=== PATIENT | female | born 1975 | race Caucasian/White ===

== ENCOUNTER 2022-03-22 04:39 | Emergency (ER) | payer SELFPAY ==
--- OUTSIDE RECORDS SUMMARY | 2022-03-22 04:42 | XMS REPORT | Continuity of Care Document ---
:1975 Author Organization [facility] t Address [address] [place] [address] [address]. [address] [place] [address] Care Team Providers Name Role Phone WALLY ESQUIVEL Attending Clinician Unavailable LORRIE GRIFFIN Attending Clinician Unavailable Problems This patient has no known problems. Allergies, Adverse Reactions, Alerts This patient has no known allergies or adverse reactions. Medications This patient has no known medications. Procedures This patient has no known procedures. Results Test Description Test Time Test Comments Results Result Comments Source BASIC METABOLIC PANEL 2019-07-18 18:13:00 Test Item Value Reference Range Interpretation Comme nts SODIUM (BEAKER) (test code 136 meq/L 135-148 = 381) POTASSIUM (BEAKER) (test 4.7 meq/L 3.6-5.5 code = 379) CHLORIDE (BEAKER) (test 108 meq/L 98-106 H code = 382) CO2 (BEAKER) (test code = 23 meq/L 20-29 355) BLOOD UREA NITROGEN 14 mg/dL 10-26 (BEAKER) (test code = 354) CREATININE (BEAKER) (test 0.82 mg/dL 0.50-1.20 code = 358) GLUCOSE RANDOM (BEAKER) 80 mg/dL 70-110 (test code = 652) CALCIUM (BEAKER) (test code 7.4 mg/dL 8.5-10.5 L = 697) EGFR (BEAKER) (test code = 75 mL/min/1.73 sq m ESTIMATED GFR IS NOT 1092) ACCURATE CRE ATININE CLEARANCE IN AK EDICTING GLOMERULAR FILT RATION RATE. ESTIMATED GFR IS NOT APPLICABLE FOR DIALYSIS PATIENTS. HCG, SERUM, [id number] 18:01:00 Test Item Value Reference Range Interpretation Comments TEST SERUM (BEAKER) (test Negative code = 584) CBC W/PLT COUNT & AUTO [id number] 17:53:00 Test Item Value Reference Range Interpretation Comments WHITE BLOOD CELL COUNT (BEAKER) 11.3 K/ L 4.0-10.0 H (test code = 775) RED BLOOD CELL COUNT (BEAKER) 4.38 M/ L 4.00-5.00 (test code = 761) HEMOGLOBIN (BEAKER) (test code = 13.7 GM/DL 12.0-15.5 410) HEMATOCRIT (BEAKER) (test code = 40.6 % 36.0-46.0 411) MEAN CORPUSCULAR VOLUME (BEAKER) 92.7 fL 82.0-99.0 (test code = 753) MEAN CORPUSCULAR HEMOGLOBIN 31.3 pg 27.0-33.0 (BEAKER) (test code = 751) MEAN CORPUSCULAR HEMOGLOBIN CONC 33.7 GM/DL 32.0-36.0 (BEAKER) (test code = 752) RED CELL DISTRIBUTION WIDTH 13.7 % 12.0-15.0 (BEAKER) (test code = 412) PLATELET COUNT (BEAKER) (test 303 K/CU MM 150-430 code = 756) MEAN PLATELET VOLUME (BEAKER) 9.6 fL 6.0-11.5 (test code = 754) NUCLEATED RED BLOOD CELLS 0 /100 WBC 0-0 (BEAKER) (test code = 413) NEUTROPHILS RELATIVE PERCENT 70 % (BEAKER) (test code = 429) LYMPHOCYTES RELATIVE PERCENT 20 % (BEAKER) (test code = 430) MONOCYTES RELATIVE PERCENT 7 % (BEAKER) (test code = 431) EOSINOPHILS RELATIVE PERCENT 3 % (BEAKER) (test code = 432) BASOPHILS RELATIVE PERCENT 0 % (BEAKER) (test code = 437) NEUTROPHILS ABSOLUTE COUNT 7.85 K/ L 1.80-8.00 (BEAKER) (test code = 670) LYMPHOCYTES ABSOLUTE COUNT 2.26 K/ L 1.48-4.50 (BEAKER) (test code = 414) MONOCYTES ABSOLUTE COUNT (BEAKER) 0.75 K/ L 0.00-1.30 (test code = 415) EOSINOPHILS ABSOLUTE COUNT 0.31 K/ L 0.00-0.50 (BEAKER) (test code = 416) BASOPHILS ABSOLUTE COUNT (BEAKER) 0.05 K/ L 0.00-0.20 (test code = 417) IMMATURE GRANULOCYTES-RELATIVE 0 % 0-0 PERCENT (BEAKER) (test code = 2801) RAD, CHEST, 1 VIEW, NON [id number] 17:41:00Reason for exam:->DIZZINESSIs the patient ?->UnknownShould this be performed at the bedside?->No FINAL REPORT Chest x-ray AP upright portable HISTORY: Dizziness COMPARISON: 04/09/2019 FINDINGS: Given the technique the cardiomediastinal silhouette is unremarkable. There is no pleural effusion or pneumothorax. Lung brizuela show no significant airspace disease, interstitial disease or lung nodules. Skeletal structures and upper abdomen are unremarkable. There is no significant change compared with the prior exam. IMPRESSION: No acute cardiopulmonary abnormality. Signed: Hudson Martinez Verified Date/Time: 07/18/2019 17:41:06 Reading Location: [facility] Diagnostic Imaging [facility] 1.310.12 TSH/FREE T4 IF [id number] 11:33:00 Test Item Value Reference Range Interpretation Comments THYROID STIMULATING HORMONE 0.79 uIU/mL 0.35-5.50 (BEAKER) (test code = 772) [id number] 11:16:00 Test Item Value Reference Range Interpretation Comments PHOSPHORUS (BEAKER) (test code = 3.4 mg/dL 2.5-4.5 604) [id number] 11:16:00 Test Item Value Reference Range Interpretation Comments MAGNESIUM (BEAKER) (test code = 1.6 mg/dL 1.5-3.0 627) COMPREHENSIVE METABOLIC [id number] 11:16:00 Test Item Value Reference Range Interpretation Comments TOTAL PROTEIN 5.8 gm/dL 6.0-8.5 L (BEAKER) (test code = 770) ALBUMIN (BEAKER) 3.6 g/dL 3.5-5.0 (test code = 1145) ALKALINE PHOSPHATASE 61 U/L 30-115 (BEAKER) (test code = 346) BILIRUBIN TOTAL 0.2 mg/dL 0.1-1.2 (BEAKER) (test code = 377) SODIUM (BEAKER) (test 139 meq/L 135-148 code = 381) POTASSIUM (BEAKER) 4.2 meq/L 3.6-5.5 (test code = 379) CHLORIDE (BEAKER) 108 meq/L 98-106 H (test code = 382) CO2 (BEAKER) (test 21 meq/L 20-29 code = 355) BLOOD UREA NITROGEN 12 mg/dL 10-26 (BEAKER) (test code = 354) CREATININE (BEAKER) 0.74 mg/dL 0.50-1.20 (test code = 358) GLUCOSE RANDOM 97 mg/dL 70-110 (BEAKER) (test code = 652) CALCIUM (BEAKER) 8.5 mg/dL 8.5-10.5 (test code = 697) AST (SGOT) (BEAKER) 20 U/L 5-40 (test code = 353) ALT (SGPT) (BEAKER) 17 U/L 5-50 (test code = 347) EGFR (BEAKER) (test 85 mL/min/1.73 ESTIMA APPLE GFR IS code = 1092) sq m NOT ACCURATE CREATININE CLEARANCE IN PREDICTING GLOMERULAR FILTRATION RATE . ESTIMATED GFR I S NOT APPLICABLE FOR DIALYSIS PATIEN TS. CBC W/PLT COUNT & AUTO [id number] 10:55:00 Test Item Value Reference Range Interpretation Comments WHITE BLOOD CELL COUNT (BEAKER) 10.3 K/ L 4.0-10.0 H (test code = 775) RED BLOOD CELL COUNT (BEAKER) 4.16 M/ L 4.00-5.00 (test code = 761) HEMOGLOBIN (BEAKER) (test code = 13.1 GM/DL 12.0-15.5 410) HEMATOCRIT (BEAKER) (test code = 39.5 % 36.0-46.0 411) MEAN CORPUSCULAR VOLUME (BEAKER) 95.0 fL 82.0-99.0 (test code = 753) MEAN CORPUSCULAR HEMOGLOBIN 31.5 pg 27.0-33.0 (BEAKER) (test code = 751) MEAN CORPUSCULAR HEMOGLOBIN CONC 33.2 GM/DL 32.0-36.0 (BEAKER) (test code = 752) RED CELL DISTRIBUTION WIDTH 13.5 % 12.0-15.0 (BEAKER) (test code = 412) PLATELET COUNT (BEAKER) (test 341 K/CU MM 150-430 code = 756) MEAN PLATELET VOLUME (BEAKER) 8.7 fL 6.0-11.5 (test code = 754) NUCLEATED RED BLOOD CELLS 0 /100 WBC 0-0 (BEAKER) (test code = 413) NEUTROPHILS RELATIVE PERCENT 73 % (BEAKER) (test code = 429) LYMPHOCYTES RELATIVE PERCENT 18 % (BEAKER) (test code = 430) MONOCYTES RELATIVE PERCENT 7 % (BEAKER) (test code = 431) EOSINOPHILS RELATIVE PERCENT 1 % (BEAKER) (test code = 432) BASOPHILS RELATIVE PERCENT 0 % (BEAKER) (test code = 437) NEUTROPHILS ABSOLUTE COUNT 7.57 K/ L 1.80-8.00 (BEAKER) (test code = 670) LYMPHOCYTES ABSOLUTE COUNT 1.89 K/ L 1.48-4.50 (BEAKER) (test code = 414) MONOCYTES ABSOLUTE COUNT (BEAKER) 0.70 K/ L 0.00-1.30 (test code = 415) EOSINOPHILS ABSOLUTE COUNT 0.06 K/ L 0.00-0.50 (BEAKER) (test code = 416) BASOPHILS ABSOLUTE COUNT (BEAKER) 0.04 K/ L 0.00-0.20 (test code = 417) IMMATURE GRANULOCYTES-RELATIVE 1 % 0-0 H PERCENT (BEAKER) (test code = 2801) RAD, CHEST, 1 VIEW, NON [id number] 10:26:00Reason for exam:- >palpitationsIs the patient ?->UnknownFINAL REPORT INDICATION: palpitations COMPARISON: January 29, 2015 TECHNIQUE: Single frontal view of the chest. FINDINGS: Lungs and pleura: Clear lungs. No effusion.Heart and mediastinum: Normal heart size. Unremarkable mediastinal contours.Osseous structures: No acute abnormality.Other: None. IMPRESSION: No acute intrathoracic abnormality. Signed: Opal Werner MDReport Verified D ate/Time: 04/09/2019 10:26:42 Reading Location: [facility] Radiology Reading Room
[2022-03-22] MEDS ORDERED: predniSONE 20 MG TAB ONE (06:19)
[2022-03-22] MEDS ORDERED: DIPHENHYDRAMINE 25 MG TAB/CAP ONE (06:19)
[2022-03-22] MEDS ORDERED: FAMOTIDINE 20 MG TAB ONE (06:20)
--- NOTE | 2022-03-22 06:47 | ER ---
Nurse's Notes [facility] Name: Yelena Ford Age: 46 yrs Sex: Female : 1975 Arrival Date: 03/22/2022 Time: 04:43 Bed 2 Private MD: Diagnosis: Allergic Reaction, nonspecific;Other pruritus Presentation: 03/22 05:03 Chief complaint: Patient states: she thinks she is having an allergic reaction to bb something since yesterday has swelling to her lips and itching all over she has taken Benadryl but it is still itching. Coronavirus screen: At this time, the client does not indicate any symptoms associated with coronavirus-19. Ebola Screen: No symptoms or risks identified at this time. Onset: The symptoms/episode began/occurred suddenly. Anaphylaxis evaluation, no signs or symptoms of anaphylaxis were noted. Initial Sepsis Screen: Does the patient meet any 2 criteria? No. Patient's initial sepsis screen is negative. Does the patient have a suspected source of infection? No. Patient's initial sepsis screen is negative. Risk Assessment: Do you want to hurt yourself or someone else? Patient reports no desire to harm self or others. Onset of symptoms was March 21, 2022. 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 - Social history:: Smoking status: Patient reports the use of cigarette tobacco products. Screenin:17 Abuse screen: Denies threats or abuse. Nutritional screening: No deficits noted. kl Tuberculosis screening: No symptoms or risk factors identified. Fall Risk None identified. Assessment: 05:15 General: Appears uncomfortable, Behavior is calm, cooperative. Pain: Denies pain. kl Neuro: No deficits noted. [place] Agitation-Sedation Scale (RASS): 0 - Alert and Calm. Cardiovascular: No deficits noted. Heart tones S1 S2. Respiratory: No deficits noted. Airway is patent Respiratory effort is even, unlabored, Breath sounds are clear bilaterally. GI: No deficits noted. No signs and/or symptoms were reported involving the gastrointestinal system. : No deficits noted. No signs and/or symptoms were reported regarding the genitourinary system. EENT: No deficits noted. No signs and/or symptoms were reported regarding the EENT system. Derm: swelling to lips Reports itching, since yesterday . to bilateral hands feet and scalp. Vital Signs: 05:03 BP 143 / 99; Pulse 82; Resp 16 S; Temp 98.6(O); Pulse Ox 100% on R/A; Weight 80.74 kg bb (R); Height 5 ft. 5 in. (165.10 cm) (R); Pain 0/10; 05:55 BP 130 / 96; Pulse 79; Resp 16; Pulse Ox 99% on R/A; ll3 05:03 Body Mass Index 29.62 (80.74 kg, 165.10 cm) ED Course: 04:43 Patient arrived in ED. bp1 05:05 Triage completed. 05:05 Arm band placed on. 05:14 Leandro Kidd MD is Attending Physician. [facility] 06:55 Patient has correct armband on for positive identification. Bed in low position. Call ll3 light in reach. Side rails up X 1. 06:55 No provider procedures requiring assistance completed. Patient did not have IV access ll3 during this emergency room visit. Administered Medications: 06:16 Drug: predniSONE 60 mg Route: PO; ll3 06:54 Follow up: Response: No adverse reaction ll3 06:16 Drug: Pepcid (famotidine) 20 mg Route: PO; ll3 06:55 Follow up: Response: No adverse reaction 3 06:52 Drug: Benadryl (diphenhydrAMINE) 50 mg Route: PO; ll3 06:54 Follow up: Response: No adverse reaction 3 Medication: 06:55 VIS not applicable for this client. ll3 Outcome: 06:46 Discharge ordered by . [facility] 06:55 Discharged to home ambulatory. 3 06:55 Condition: stable 06:55 Discharge instructions given to patient, Instructed on discharge instructions, follow up and referral plans. medication usage, Demonstrated understanding of instructions, follow-up care, medications, Prescriptions given X 3. 06:55 Patient left the ED. 3 Signatures: Faby Sharma RN RN kl Ballard, Brenda, RN RN bb Paniauga, Brittany bp1 Holmes, Maurice, MD MD mh7 Estefanía Cortes RN RN ll3 Corrections: (The following items were deleted from the chart) 05:09 05:03 BP 143 / 99; Pulse 82bpm; Resp 16bpm; Spontaneous; Pulse Ox 100% RA; Temp 98.6F bb Oral; 72.57 kg Reported; Height 5 ft. 5 in. Reported; BMI: 26.6; Pain 0/10; bb
--- NOTE | 2022-03-22 06:48 | EDPHYS ---
Physician Documentation [facility] Name: Yelena Ford Age: 46 yrs Sex: Female : 1975 Arrival Date: 03/22/2022 Time: 04:43 Bed 2 Private MD: ED Physician Leandro Kidd HPI: 03/22 06:08 This 46 yrs old Female presents to ER via Ambulatory with complaints of Mouth Swelling, mh7 Feet Swelling, Itching. 06:08 The patient presents with itching, localized swelling, swelling of the lips. Onset: The mh7 symptoms/episode began/occurred yesterday. Associated signs and symptoms: Pertinent negatives: abdominal pain, Altered mental status chest pain, dysphagia, fever, headache, hives, Light headed nausea, rash, shortness of breath, Syncope vomiting. Possible causes: The patient has no known obvious cause for the symptoms. At home the patient or guardian has treated the symptoms with Benadryl. Severity of symptoms: At their worst the symptoms were moderate yesterday, in the emergency department the symptoms have improved moderately. Thinks symptoms may be related to new clothing that she wore.. 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 - Social history:: Smoking status: Patient reports the use of cigarette tobacco products. ROS: 06:08 Constitutional: Negative for fever, chills, and weight loss, Eyes: Negative for injury, mh7 pain, redness, and discharge, Neck: Negative for injury, pain, and swelling, Cardiovascular: Negative for chest pain, palpitations, and edema, Respiratory: Negative for shortness of breath, cough, wheezing, and pleuritic chest pain, Abdomen/GI: Negative for abdominal pain, nausea, vomiting, diarrhea, and constipation, Back: Negative for injury and pain, : Negative for injury, bleeding, discharge, and swelling, MS/Extremity: Negative for injury and deformity, Skin: Negative for injury, rash, and discoloration, Neuro: Negative for headache, weakness, numbness, tingling, and seizure, Psych: Negative for depression, anxiety, suicide ideation, homicidal ideation, and hallucinations, Endocrine: Negative for neck swelling, polydipsia, polyuria, polyphagia, and marked weight changes. Exam: 06:08 Constitutional: This is a well developed, well nourished patient who is awake, alert, mh7 and in no acute distress. Head/Face: Normocephalic, atraumatic. Eyes: Pupils equal round and reactive to light, extra-ocular motions intact. Lids and lashes normal. Conjunctiva and sclera are non-icteric and not injected. Cornea within normal limits. Periorbital areas with no swelling, redness, or edema. ENT: Nares patent. No nasal discharge, no septal abnormalities noted. Tympanic membranes are normal and external auditory canals are clear. Oropharynx with no redness, swelling, or masses, exudates, or evidence of obstruction, uvula midline. Mucous membranes moist. Neck: Trachea midline, no thyromegaly or masses palpated, and no cervical lymphadenopathy. Supple, full range of motion without nuchal rigidity, or vertebral point tenderness. No Meningismus. Chest/axilla: Normal chest wall appearance and motion. Nontender with no deformity. No lesions are appreciated. Cardiovascular: Regular rate and rhythm with a normal S1 and S2. No gallops, murmurs, or rubs. Normal PMI, no JVD. No pulse deficits. Respiratory: Lungs have equal breath sounds bilaterally, clear to auscultation and percussion. No rales, rhonchi or wheezes noted. No increased work of breathing, no retractions or nasal flaring. Abdomen/GI: Soft, non-tender, with normal bowel sounds. No distension or tympany. No guarding or rebound. No evidence of tenderness throughout. Back: No spinal tenderness. No costovertebral tenderness. Full range of motion. Skin: Warm, dry with normal turgor. Normal color with no rashes, no lesions, and no evidence of cellulitis. MS/ Extremity: Pulses equal, no cyanosis. Neurovascular intact. Full, normal range of motion. Neuro: Awake and alert, GCS 15, oriented to person, place, time, and situation. Cranial nerves II-XII grossly intact. Motor strength 5/5 in all extremities. Sensory grossly intact. Cerebellar exam normal. Normal gait. Psych: Awake, alert, with orientation to person, place and time. Behavior, mood, and affect are within normal limits. Vital Signs: 05:03 BP 143 / 99; Pulse 82; Resp 16 S; Temp 98.6(O); Pulse Ox 100% on R/A; Weight 80.74 kg bb (R); Height 5 ft. 5 in. (165.10 cm) (R); Pain 0/10; 05:55 BP 130 / 96; Pulse 79; Resp 16; Pulse Ox 99% on R/A; ll3 05:03 Body Mass Index 29.62 (80.74 kg, 165.10 cm) bb MDM: 06:44 Differential diagnosis: angioedema, Hereditary Angioedema non IgE mediated drug mh7 reaction urticaria. Data reviewed: vital signs, nurses notes. Data interpreted: Pulse oximetry: on room air is 99 %. Interpretation: normal. Counseling: I had a detailed discussion with the patient and/or guardian regarding: the historical points, exam findings, and any diagnostic results supporting the discharge/admit diagnosis, the presence of at least one elevated blood pressure reading (>120/80) during this emergency department visit, the need for outpatient follow up, to return to the emergency department if symptoms worsen or persist or if there are any questions or concerns that arise at home. Response to treatment: the patient's symptoms have resolved after treatment, the patient's blood pressure is in an acceptable range, mental status has returned to baseline, the patient no longer shows bradycardia, the patient is not short of breath, the patient is not tachycardic, the patient's pain is gone, the patient's temperature has normalized. 06:46 Patient medically screened. mh7 Administered Medications: 06:16 Drug: predniSONE 60 mg Route: PO; ll3 06:54 Follow up: Response: No adverse reaction ll3 06:16 Drug: Pepcid (famotidine) 20 mg Route: PO; ll3 06:55 Follow up: Response: No adverse reaction ll3 06:52 Drug: Benadryl (diphenhydrAMINE) 50 mg Route: PO; ll3 06:54 Follow up: Response: No adverse reaction ll3 Disposition Summary: 03/22/22 06:46 Discharge Ordered Location: Home [facility] Problem: new mh7 Symptoms: have improved mh7 Condition: Stable mh7 Diagnosis - Allergic Reaction, nonspecific [facility] - Other pruritus [facility] Followup: [facility] - With: Private Physician - When: 1 - 2 days - Reason: Worsening of condition, Recheck today's complaints, Continuance of care, Re-evaluation by your physician Discharge Instructions: - Discharge Summary Sheet [facility] - Pruritus [facility] - Allergies, Adult, [id number] [facility] Forms: - Medication Reconciliation Form [facility] - Thank You Letter [facility] - Antibiotic Education [facility] - Prescription Opioid Use [facility] - Work release form 3 Prescriptions: - Benadryl 25 mg Oral Capsule - take 1 capsule by ORAL route every 6 hours As needed; 30 tablet; Refills: 0, [facility] Product Selection Permitted - Pepcid 20 mg Oral Tablet - take 1 tablet by ORAL route every 12 hours for 5 days; 10 tablet; Refills: 0, [facility] Product Selection Permitted - Prednisone 20 mg Oral Tablet - take 2 tablets by ORAL route once daily for 5 days; 10 tablet; Refills: 0, [facility] Product Selection Permitted Signatures: Rylee Mayer RN RN Leandro Kidd MD MD [facility] Estefanía Cortes RN RN [facility]
[2022-03-22 07:39] VITALS: TEMP 98.6
[2022-03-22 07:41] VITALS: BP 130/96; O2SAT 99
== END 2022-03-22 06:55 | disposition home or self-care (01) ==
LOC: ER 04:39
DX: L29.8 Other pruritus (principal); Z91.09 Other allergy status, other than to drugs and biological substances; F17.210 Nicotine dependence, cigarettes, uncomplicated
CPT/HCPCS: 99283; J7512

== ENCOUNTER 2023-02-07 04:24 | Emergency (ER) | payer SELFPAY ==
--- OUTSIDE RECORDS SUMMARY | 2023-02-07 04:30 | XMS REPORT | Continuity of Care Document ---
:1975 Author Organization [facility] t Address [address] [place] [address] [address] [place] [address] Care Team Providers Name Role Phone Markus COTTER Gerard Domingo Primary Care Physician [phone] Edison Dias Attending Clinician Unavailable JOEL RYAN Attending Clinician Unavailable Joel Ryan DO Attending Clinician Ivett Bello MD Attending Clinician Sandra Rosa MD Attending Clinician Provider, Unknown Attending Clinician Unavailable Pepe Ash MD Attending Clinician VICTORIANO HIGGINS Attending Clinician Unavailable Victoriano Higgins MD Attending Clinician WALLY ESQUIVEL Attending Clinician Unavailable LORRIE GRIFFIN Attending Clinician Unavailable Ekta Cardozo Attending Clinician Physician, No Primary or Family Admitting Clinician UnavailJOEL Ontiveros Admitting Clinician Unavailable SANDRA ROSA Admitting Clinician Unavailable Payers Payer Name Policy Type Policy Number Effective Date Expiration Date S ource Problems Condition Condition Condition Status Onset Resolution Last Treating Co mments Source Name Details Category Date Date Treatment Clinician Date Cerebrovas Cerebrovas Disease Active M ethodi cular cular 1-17 st accident accident 00:00: Hospit a (CVA), (CVA), 00 l unspecifie unspecifie d d mechanism mechanism UTI UTI Diagnosis Active 2017-05-14 Mem oria Active 04-30 15:02:00 l 04/30/2017 00:00: Denzel aguilar 00 [facility] No known No known Disease Unive rs active active ity of problems problems [facility] History of Past Illness Condition Condition Condition Status Onset Resolution Last Treating Co mments Source Name Details Category Date Date Treatment Clinician Date Essential Essential Problem 2017-05-03 2017-05-03 Memoria (primary) (primary) 04-30 01:26:28 01:26:28 l hypertensi hypertensi 05:00: He rmann on on 04/30/2017 7 [facility] Urinary Urinary Problem 2017-05-03 2017-05-03 Memoria tract tract 04-30 01:26:28 01:26:28 l infection, infection, 05:00: He rmann site not site not 00 specified specified 04/30/2017 05/03/2017 [facility] Allergies, Adverse Reactions, Alerts Allergy Allergy Status Severity Reaction(s) Onset Inactive Treating Comm ents Source Name Type Date Date Clinician No Known DA Active U 2016-08 [facility] 1-25 [facility] NO KNOWN Drug Active Univers ALLERGIE Class ity of S [facility] Social History Social Habit Start Date Stop Date Quantity Comments Source History of tobacco Cigarette Smoker [facility] Sexual [facility] Exposure to 2022-10-10 2022-10-20 Not sure University of SARS-CoV-2 (event) 00:00:00 09:45:00 [facility] History of Social 2022-09-01 2022-09-[address] function 00:00:00 00:00:00 Hospital Tobacco use and 2022-08-31 2022-08-31 Smokeless tobacco Me [facility]od[facility] exposure 00:00:00 00:00:00 non-user Hospital Alcohol Comment 2022-08-31 2022-08-[address] 00:00:00 00:00:00 Hospital Cigarettes smoked 2022-08-31 2022-08-[address] current (pack per 00:00:00 00:00:00 Hospita l day) - Reported Alcohol intake 2019-07-18 2019-07-18 Current drinker of [facility] 00:00:00 00:00:00 alcohol (finding) [facility] Sex Assigned At [address] [facility] 00:[facility]00 [facility]00 [facility] Smoking Status Start Date Stop Date Source Tobacco smoking consumption Univ [facility] Smokes tobacco daily 2022-08-31 [facility] Medications Ordered Filled Start Stop Current Ordering Indication Dosage Frequency Signature Comments Components Source Medication Medication Date Date Medication? Clinician (SIG) Name Name aspirin 2022- No 325mg QD Take 1 Method i (ECOTRIN) 09-[address] 325 MG 00:00: 05:59 (325 mg Hospita enteric 00 :00 total) by l coated mouth tablet daily for 30 days. aspirin 2022- No 325mg QD Take 1 Method i (ECOTRIN) 09-03- tablet st 325 MG 00:00: 05:59 (325 mg Hospita enteric 00 :00 total) by l coated mouth tablet daily for 30 days. atorvastati 2022- No 80mg QD Take 1 Met hodi n (LIPITOR) 09-02 tablet (80 s t 80 MG 00:00: 05:59 mg total) Hospit a tablet 00 :00 by mouth l nightly for 30 days. atorvastati 2022- No 80mg QD Take 1 Met hodi n (LIPITOR) 09-02 tablet (80 s t 80 MG 00:00: 05:59 mg total) Hospit a tablet 00 :00 by mouth l nightly for 30 days. predniSONE No 40mg 40 mg, Univ ers (DELTASONE) 08-23 Oral, ity of tablet 40 17:15: 16:32 [place]CE, 1 [place] mg 00 :[place] dose, On Medical 08/23/22 Branch at 1115, ROSAURA famotidine 2022- No 20mg 20 mg, Univ ers (PEPCID AC) 08-23 Oral, ity of tablet 20 16:30: 16:32 [place]CE[place] mg 00 :00 dose, On Medical 08/23/22 Branch at 1030, ROS[place] diphenhydrA 2022- No 25mg 25 mg, Uni vers MINE 08-23 Oral, ity of (BENADRYL) 16:30: 16:32 ONCE, 1 [place] as tablet 25 00 :00 dose, On Medica l mg 08/23/22 Branch at 1030, ROSAURA predniSONE 2022- No [id number] 40mg Take 2 Univers 20 mg 08-23 tablets by ity of tablet 00:00: 05:59 mouth in [place] 00 :00 the Medical morning Branch for 7 days. Norvasc 2017-0 No 5 mg, Memoria 04-30 Route: PO, l 16:59: Daily, Dosing Weight 72.727, kg, Priority: STAT, Start date: 04/30/17 11:59:00 CDT, Duration: 30 day, Stop date: 05/30/17 9:00:00 CDT Norvasc 2017-0 No 5 mg, Memoria 04-30 Route: PO, l 16:59: Daily, Dosing Weight 72.727, kg, Priority: STAT, Start date: 04/30/17 11:59:00 CDT, Duration: 30 day, Stop date: 05/30/17 9:00:00 CDT Amlodipine 2017-0 Yes 5 mg = 1 Mem oria 5 MG Oral 9-16 tab, PO, l Tablet 16:54: Daily, # Flavio [Norvasc] 00 30 tab, 1 Refill(s) Amlodipine 2017-0 Yes 5 mg = 1 Mem oria 5 MG Oral 9-16 tab, PO, l Tablet 16:54: Daily, # Flavio [Norvasc] 00 30 tab, 1 Refill(s) Phenazopyri 2017-0 No 200 mg = 1 Memoria dine -16 tab, PO, l hydrochlori 16:25: TID, PRN Francisco tatum 200 MG 00 bladder Oral Tablet spasms, X [Pyridium] 2 day, # 6 tab, 0 Refill(s) Phenazopyri 2017-0 No 200 mg = 1 Memoria dine 9-16 tab, PO, l hydrochlori 16:25: TID, PRN He anya de 200 MG 00 bladder Oral Tablet spasms, X [Pyridium] 2 day, # 6 tab, 0 Refill(s) Sulfamethox 2017-0 Yes 2 tab, PO, Memoria azole 800 9-16 BID, # 12 l MG / 16:23: tab, 0 Flavio Trimethopri 00 Refill(s) m 160 MG Oral Tablet [Bactrim] Sulfamethox 2017-0 Yes 2 tab, PO, Memoria azole 800 9-16 BID, # 12 l MG / 16:23: tab, 0 Flavio Trimethopri 00 Refill(s) m 160 MG Oral Tablet [Bactrim] Pyridium 0 No Notes: Memoria 9-16 Give with l 16:19: meals. Flavio 00 (Same as: Pyridium) Pyridium No Notes: Memoria 9-16 Give with l 16:19: meals. [place] 00 (Same as: Pyridium) Vital Signs Vital Name Observation Time Observation Value Comments Source Systolic blood 2022-10-20 17:15:00 109 mm[Hg] [facility] Diastolic blood 2022-10-20 17:15:00 77 mm[Hg] [facility] Heart rate 2022-10-20 17:15:00 66 /min [facility] Respiratory rate 2022-10-20 17:15:00 16 /min [facility] Oxygen saturation in 2022-10-20 17:15:00 97 /min [facility] Arterial blood by [facility] Pulse oximetry Branch Body temperature 2022-10-20 15:43:00 37.11 Josefina [facility] Body height 2022-10-20 15:43:00 165.1 cm [facility] Body weight 2022-10-20 15:43:00 79.379 kg [facility] BMI 2022-10-20 15:43:00 29.12 kg/m2 [facility] Systolic blood 2022-08-23 16:38:37 160 mm[Hg] Univer sity of pressure [facility] Diastolic blood 2022-08-23 16:38:37 88 mm[Hg] Unive rsity of pressure [facility] Heart rate 2022-08-23 16:38:37 98 /min Universi ty [facility] Body temperature 2022-08-23 16:38:37 36.83 Josefina Univ ersity [facility] Respiratory rate 2022-08-23 16:38:37 18 /min [facility] Body height 2022-08-23 15:44:00 165.1 cm Universi ty [facility] Body weight 2022-08-23 15:44:00 81.647 kg [facility] BMI 2022-08-23 15:44:00 29.95 kg/m2 [facility] Oxygen saturation in 2022-08-23 15:44:00 99 /min University Arterial blood by [facility] Pulse oximetry Branch Systolic blood 2022-09-02 16:54:52 124 mm[Hg] [facility] pressure Diastolic blood 2022-09-02 16:54:52 75 mm[Hg] [facility] pressure Heart rate 2022-09-02 16:54:52 68 /min [facility] Body temperature 2022-09-02 16:54:52 36.5 Josefina [facility] Respiratory rate 2022-09-02 16:54:52 16 /min [facility] Oxygen saturation in 2022-09-02 16:54:52 99 /min [facility] Arterial blood by Pulse oximetry Body height 2022-09-02 11:00:00 165.1 cm [facility] Body weight 2022-09-02 11:00:00 80.8 kg [facility] BMI 2022-09-02 11:00:00 29.64 kg/m2 [facility] Temperature Oral (F) 2017-04-30 17:13:00 98 F [facility] [place] Systolic (mm Hg) 2017-04-30 17:13:00 Mike rial [place] Diastolic (mm Hg) 2017-04-30 17:13:00 Mem orial [place] Heart Rate 2017-04-30 17:13:00 Memorial Flavio Respitory Rate 2017-04-30 17:13:00 Odilon Mann Temperature Oral (F) 2017-04-30 15:23:00 98.2 F [facility] [place] Respitory Rate 2017-04-30 15:23:00 Odilon Mann Heart Rate 2017-04-30 15:23:00 Efrain Womackann BMI Calculated 2017-04-30 15:23:00 Odilon Mann Weight 2017-04-30 15:23:00 Efrain Muniz Height 2017-04-30 15:23:00 165.1 cm Efrain Womackann Systolic (mm Hg) 2017-04-30 15:23:00 Mike Muniz Diastolic (mm Hg) 2017-04-30 15:23:00 Mem kimal Flavio Procedures Procedure Date / Time Performing Clinician Source Performed CT HEAD WO CONTRAST 2022-10-20 16:46:00 Joel Ryan [facility] XR CHEST 1 VW 2022-10-20 16:14:50 Singer [facility] LIPASE 2022-10-20 16:08:00 Singer [facility] MAGNESIUM 2022-10-20 16:08:00 Singer [facility] TROPONIN I 2022-10-20 16:08:00 Singer [facility] COMP. METABOLIC PANEL 2022-10-20 16:08:00 Joel Ryan [facility] ([id number]) [facility] CBC WITH DIFF 2022-10-20 16:08:00 Singer [facility] N-TERMINAL PRO-BNP 2022-10-20 16:08:00 Joel Ryan [facility] CONSENT/REFUSAL FOR 2022-10-20 15:28:00 Doctor Unassigned, [facility] DIAGNOSIS AND TREATMENT [facility] IR ANGIOGRAM CEREBRAL 2022-09-01 14:56:[facility] [place] US GUIDED VASCULAR ACCESS 2022-09-01 14:56[facility] [place] [facility] RIGHT LOWER EXTREMITY 2022-09-01 14:56:34 [facility] ANGIOGRAM [place] IR SELECT CATHETER PLACE 2022-09-01 14:56:[facility] [place] BILATERAL IR ANGIOGRAM VERTEBRAL 2022-09-01 14:56:[facility] [place] LIPID PANEL 2022-09-01 11:33:00 Titi Lemus HEMOGLOBIN A1C 2022-09-01 11:33:00 [facility] STROKE BRAIN WO 2022-09-01 04:17:41 [facility] [place] TTE COMPLETE, WO 2022-09-01 00:00[facility]00 [facility], W DOPPLER [place] ([id number]) TROPONIN T 2022-08-31 22:32:00 [facility] ospital TROPONIN T 2022-08-31 18:37:00 [facility] ospital COVID-19 QUALITATIVE 2022-08-31 17:59:00 [facility] RT-PCR CT ANGIOGRAM NECK W WO 2022-08-31 17:30:25 [facility] CONTRAST CT ANGIOGRAM HEAD W WO 2022-08-31 17:30:00 [facility] CONTRAST CT HEAD WO CONTRAST 2022-08-31 17:17:21 [facility] ECG 12-LEAD 2022-08-31 16:26:08 [facility] ospital CBC WITH PLATELET AND 2022-08-31 15:52:00 [facility] Aba [facility] DIFFERENTIAL COMPREHENSIVE METABOLIC 2022-08-31 15:52:00 [facility] PANEL TROPONIN T 2022-08-31 15:52:00 [facility] ospital HCG QUALITATIVE, SERUM 2022-08-31 15:52:00 [facility] SCREEN PROTHROMBIN TIME WITH INR 2022-08-31 15:52:00 [facility] PARTIAL THROMBOPLASTIN 2022-08-31 15:52:00 [facility] TIME (PTT) ESTIMATED GFR 2022-08-31 15:52:00 Ivett Bello H ospital ECG ED PRELIMINARY 2022-08-31 15:45:37 Ivett Bello t Hospital INTERPRETATION NOTICE OF PRIVACY 2022-08-23 15:36:25 Doctor Unassigned, [facility] PRACTICES [facility] CONSENT/REFUSAL FOR 2022-08-23 15:35:27 Doctor Unassigned, [facility] DIAGNOSIS AND TREATMENT [facility] Plan of Care Planned Activity Planned Date Details Comments Source Future Scheduled 2023-02-07 [facility] Test 03:09:25 malignant neoplasm of colon (procedure) [code = 684373536] Future Scheduled 2023-02-07 [facility] Test 03:09:25 malignant neoplasm of colon (procedure) [code = 147018097] Future Scheduled 2023-02-07 [facility] Test 03:09:25 malignant neoplasm of colon (procedure) [code = 333157002] Future Scheduled 2023-02-07 COVID-19 VACCINE (#1) [facility] Test 03:09:25 [code = COVID-19 VACCINE (#1)] Future Scheduled 2023-02-07 Pneumococcal Vaccine: [facility] Test 03:09:25 Pediatrics (0 to 5 Years) and At-Risk Patients (6 to 64 Years) (1 - PCV) [code = Pneumococcal Vaccine: Pediatrics (0 to 5 Years) and At-Risk Patients (6 to 64 Years) (1 - PCV)] Future Scheduled 2023-02-07 Hepatitis C screening [facility] Test 03:09:25 (procedure) [code = 867322307] Future Scheduled 2023-02-07 [facility] Test 03:09:25 malignant neoplasm of cervix (procedure) [code = 232429553] Future Scheduled 2023-02-07 BREAST CANCER [facility] Test 03:09:25 SCREENING [code = BREAST CANCER SCREENING] Future Scheduled 2023-02-07 [facility] Test 03:09:25 malignant neoplasm of colon (procedure) [code = 844021827] Future Scheduled 2023-02-07 [facility] Test 03:09:25 malignant neoplasm of colon (procedure) [code = 454255365] Future Scheduled 2023-02-07 INFLUENZA VACCINE [facility] Test 03:09:25 [code = INFLUENZA VACCINE] Future Scheduled 2022-11-03 Hepatitis C screening [facility] Test 09:25:32 (procedure) [code = 353221221] Future Scheduled 2022-11-03 [facility] Test 09:25:32 malignant neoplasm of cervix (procedure) [code = 920509321] Future Scheduled 2022-11-[address] [facility] Test 09:25:32 SCREENING [code = BREAST CANCER SCREENING] Future Scheduled 2022-11-03 COLONOSCOPY SCREENING [facility] Test 09:25:32 [code = COLONOSCOPY SCREENING] Future Scheduled 2022-11-03 INFLUENZA VACCINE [facility] Test 09:25:32 [code = INFLUENZA VACCINE] Future Scheduled 2022-11-03 COVID-19 VACCINE (#1) [facility] Test 09:25:32 [code = COVID-19 VACCINE (#1)] Future Scheduled 2022-11-03 Pneumococcal Vaccine: [facility] Test 09:25:32 Pediatrics (0 to 5 Years) and At-Risk Patients (6 to 64 Years) (1 - PCV) [code = Pneumococcal Vaccine: Pediatrics (0 to 5 Years) and At-Risk Patients (6 to 64 Years) (1 - PCV)] Encounters Start End Encounter Admission Attending Care Care Encounter Source Date/Time Date/Time Type Type Clinicians Facility Department ID 2022-11-03 2022-11-03 Emergency EM Lizzie Diasn [facility] [id number] [facility] 08:38:00 11:16:[address] [facility] 2022-10-20 2022-10-20 Emergency X [facility] ERT [id number] Univers 09:46:00 12:09:00 JOEL poole of [facility] 2022-10-20 2022-10-20 Emergency Singer [facility] [id number] Univers 09:46:00 12:09:00 Joel PEPPER 350.1.13.10 i rosanna [facility] 4.2.7.2.686 [facility] [id number] [place] [address] Branch 2022-08-31 2022-09-02 [facility] Ivett Bello 1.2.840.1 [id number] Methodi 09:23:00 15:58:00 Encounter Sandra Rosa [id number] 3.430.2.7 Hospit a .3.755824 l .8 2022-08-31 2022-09-02 [facility] Ivett Bello 1.2.840.1 [id number] Methodi 09:23:00 15:58:00 Encounter Sandra Rosa [id number] 3.430.2.7 Hospit a .3.886517 l .8 2022-09-02 2022-09-02 Documentat Provider, 1.2.840.1 [id number] Methodi 00:00:00 00:00:00 ion Unknown [id number] 3.430.2.7 Hospit a .3.986212 l .8 2022-09-02 2022-09-02 Documentat Provider, 1.2.840.1 [id number] 2 [id number] Methodi 00:00:00 00:00:00 ion Unknown [id number] 3.430.2.7 Hospit a .3.899730 l .8 2022-09-01 2022-09-01 Anesthesia Mihir, 1.2.840.1 [id number] Methodi 07:31:00 08:46:00 Event Pepe 01047.1.[address] Edwin 3.430.2.7 Hospit a .3.180333 l .8 2022-09-01 2022-09-01 Anesthesia Mihir, 1.2.840.1 [id number] Methodi 07:31:00 08:46:00 Event Pepe 07436.1.[address] Edwin 3.430.2.7 Hospit a .3.968772 l .8 2022-08-31 2022-08-31 Travel 1.2.840.1 [id number] [id number] Methodi 00:00:00 00:00:[address] 3.430.2.7 0.2.7.3.698 Ho spita .3.383144 084.8 l .8 2022-08-31 2022-08-31 Travel 1.2.840.1 [id number] [id number] Methodi 00:00:00 00:00:[address] 3.430.2.7 0.2.7.3.698 Ho spita .3.469641 084.8 l .8 2022-08-23 2022-08-23 Emergency X [facility] ERT [id number] Univers 09:46:00 10:40:00 VICTORIANO poole [facility] 2022-08-23 2022-08-23 Emergency [facility] [id number] Univers 09:46:00 10:40:00 Victoriano PEPPER 350.1.13.10 virgilio [facility] 4.2.7.2.686 [facility] [id number] [address] 2017-04-30 2017-04-30 Emergency [facility] [id number] Memoria 15:19:00 17:14:00 layla Muniz [address] [place] [address] 2017-04-30 2017-04-30 Emergency [facility] [id number] Memoria 15:19:00 17:14:00 layla Muniz [address] [place] [address] 2017-04-30 2017-04-30 Outpatient Juliane [facility] [id number] 10:19:00 12:14:00 Ekta 01 Kathrin Results Test Description Test Time Test Comments Results Result Comments Source LIPASE 2022-11-03 10:43:00 Test Item Value Reference Range Interpretation Comme nts LIPASE (test code = LIP) 143 Unit/L 114-286 N HCG [id number] 10:43:00 Test Item Value Reference Range Interpretation Comments HCG SERUM (test code 2 mi-IU/ML 0-3 N INTERPR ET B-HCG LEVELS = HCG) LESS THAN OR EQ UAL TO 3 MIU/ML NEG BASIC METABOLIC [id number] 10:43:00 Test Item Value Reference Range Interpretation Comments SODIUM (test code 135.0 mmol/L 133-144 N = NA) POTASSIUM (test 4.3 mmol/L 3.5-5.1 N code = K) CHLORIDE (test 105 mmol/L 95-105 N code = CL) CARBON DIOXIDE 25 mmol/L 21-32 N (test code = CO2) ANION GAP (test 5.0 GAP calc 4.0-15.0 N code = GAP) GLUCOSE (test code 105 MG/DL 70-110 N = GLU) BLOOD UREA 16 MG/DL 7-18 N NITROGEN (test code = BUN) GLOMERULAR 86 estGFR >60 The Glomerular FILTRATION RATE Filtration R ate is a (test code = GFR) calculated parameterbased on serum Creatinin e, patient age and sex. GFR valuesless than 60 mL/min/1.73 squ are meters are yumiko cative ofChronic Kidne y Disease. Values less than 15 mL/min/1.73squa re meters indicate Kidney failure. The calculation for GFR is based on the CK D-EPI (2020) calculat ion. This formulais race indifferent and is the recommended for [place] for GFRby the N [facility] on for Adults.The GFR will not calculate i f the sex is unknown or if thepatient's ag e is <18 years. CREATININE (test 0.84 MG/DL 0.55-1.30 N Results may be code = CREAT) depressed if p atient is takingN-Acetylc ysteine (NAC) and Metam izole (Dipyrone). CALCIUM (test code 9.6 MG/DL 8.5-10.1 N = CA) INDEX HEMOLYSIS 1 NORMAL <10 See_Comment [Automated message] (test code = MG Index/DL The system [employer] HEMINDEX) generated this result transmitted ref erence range: 1 NORMAL . The reference range was not used to int erpret this result as normal/abnormal . INDEX ICTERIC 1 NORMAL <2 MG See_Comment [Automated message] (test code = Index/DL The system [employer] ICTINDEX) generated this result transmitted ref erence range: 1 NORMAL . The reference range was not used to int erpret this result as normal/abnormal . INDEX LIPEMIA 1 NORMAL <50 See_Comment [Automated me ssage] (test code = MG Index/DL The system [employer]) generated this result transmitted ref erence range: 1 NORMAL . The reference range was not used to int erpret this result as normal/abnormal . HEPATIC FUNCTION [id number] 10:43:00 Test Item Value Reference Range Interpretation Comments TOTAL PROTEIN (test code = 7.1 G/DL 6.4-8.2 N PROT) ALBUMIN (test code = ALB) 4.2 G/DL 3.4-5.0 N BILIRUBIN TOTAL (test code = 0.21 MG/DL 0.00-1.00 N BILT) BILIRUBIN DIRECT (test code = < 0.10 MG/DL 0.00-0.30 N BILD) BILIRUBIN INDIRECT (test code CALC KAREN MG/DL 0.2-1.3 L = BILIND) SGOT/AST (test code = AST) 17 Unit/L 15-37 N SGPT/ALT (test code = ALT) 27 Unit/L 12-78 N ALKALINE PHOSPHATASE TOTAL 67 Unit/L 45-117 N (test code = ALKP) UA RFLX MICR CULT IF [id number] 10:02:00 Test Item Value Reference Range Interpretation Comments UA COLOR (test code = LIGHT-YELLOW YELLOW COLU) DESCRIPT UA APPEARANCE (test CLEAR DESCRIPT CLEAR code = APPU) UA GLUCOSE DIPSTICK NORMAL (0) See_Comment [Automa daisy (test code = DGLUU) mg/dL message] The system which generated this result transmit daisy reference range : 0 (NORMAL). The reference range was not used to interpret this result as normal/abnormal . UA BILIRUBIN DIPSTICK NEGATIVE (0.0) See_Comment [Au tomated (test code = BILU) mg/dL message] The system which generated this result transmit daisy reference range : (NEG) 0. The reference range was not used to interpret this result as normal/abnormal . UA KETONE DIPSTICK NEGATIVE (0) See_Comment [Automat ed (test code = KETU) mg/dL message] The system which generated this result transmit daisy reference range : (NEG) 0. The reference range was not used to interpret this result as normal/abnormal . UA SPECIFIC GRAVITY 1.007 SG 1.001-1.035 (test code = SGU) UA BLOOD DIPSTICK NEGATIVE (0.00) See_Comment [Autom ated (test code = CECI) mg/dL message] T he system which generated this result transmit daisy reference range : 0 (NEG). The reference range was not used to interpret this result as normal/abnormal . UA PH DIPSTICK (test 7.0 pH UNITS 4.6-8.0 code = SUSAN) UA PROTEIN DIPSTICK NEGATIVE (0) See_Comment [Automa daisy (test code = PROU) mg/dL message] The system which generated this result transmit daisy reference range : <30 (1+). The reference range was not used to interpret this result as normal/abnormal . UA UROBILINIOGEN NORMAL (0) See_Comment [Automated DIPSTICK (test code = mg/Dl messag e] The URO) system which generated this result transmit daisy reference range : <2.0 (1+). The reference range was not used to interpret this result as normal/abnormal . UA NITRITE DIPSTICK NEGATIVE (0) NEG (test code = MAREK) SCREEN UA LEUKOCYTE ESTERASE 250 Leuk/mcL See_Comment A [Auto mated DIPSTICK (test code = messag e] The LEUU) system which generated this result transmit daisy reference range : (NEG) 0. The reference range was not used to interpret this result as normal/abnormal . UA COMMENT (test code SPECIMEN SpecComment = COMU) COMMENT NoteSPEC UA WBC (test code = 0-3 #WBC/HPF 0-3 WBCU) UA RBC (test code = 0-3 #RBC/HPF 0-3 RBCU) UA BACTERIA (test TRACE >0 /HPF NONE-FEW code = BACU) UA SQUAMOUS CELLS FEW >2 /UL NONE-SQepi (test code = SQU) UA CULTURE NEEDED? Crit NOTmet Cult byWBC (test code = UACULT) CULT-N/A Criteria Indication for culture: Flank PainUA DESCRIPTION: CLEAN CATCHCBC W/O DIFF 2022-11-03 09:58:00 Test Item Value Reference Range Interpretation Comments WHITE BLOOD CELL (test code = WBC) 9.7 K/mm3 4.1-12.1 N RED BLOOD CELL (test code = RBC) 4.26 M/mm3 3.8-5.5 N HEMOGLOBIN (test code = HGB) 13.1 G/DL 10.6-15.8 N HEMATOCRIT (test code = HCT) 40.7 % 31.8-47.4 N MEAN CELL VOLUME (test code = MCV) 95.5 fL 80.1-101.1 N MEAN CELL HGB (test code = MCH) 30.8 pg 25.3-35.3 N MEAN CELL HGB CONCETRATION (test 32.2 G/DL 32.7-35.1 L code = MCHC) RED CELL DISTRIBUTION WIDTH (test 16.7 % 12.2-16.4 H code = RDW) PLATELET COUNT (test code = PLT) 362 K/mm3 155-337 H MEAN PLATELET VOLUME (test code = 9.2 fL 6.8-11.2 N MPV) - CT ABD PELVIS W/ERYP2348-57-85 09:55:00 [facility] : 1975 Sex: F Patient Name: FARA FARMER Unit No: [id number] EXAMS: CPT CODE: [id number] CT ABD PELVIS W/CONT [id number]: - CT ABD PELVIS W/CONT. LOCATION: B2. HISTORY: rlq abd pain. r flank pain . COMPARISON: None. TECHNIQUE: CT abdomen and pelvis was performed with the use of IV contrast (75 mL Isovue 300). Sagittal and coronal reconstructed images were available for review. This exam was performed accordi ng to our departmental dose-optimization program, which includes automated exposure control, adjustment of the mA and/or kV according to patient size, and/or use of iterative reconstruction technique. Unless otherwise specified, incidental findings do not require dedicated imaging follow-up. FINDINGS:Lower chest: No acute pulmonary infiltrates are identified. Heart size is normal. Abdomen and pelvis: Subcentimeter left hepatic hypodensity is too small to characterize. The gallbladder, pancreas, spleen, bilateral adrenal glands, and bilateral kidneys appear within normal limits. There is no evidence of nephrolithiasis or obstructive urolithiasis. The urinary bladder appears normal. 3.4 cm left adnexal cyst is present. There is no adenopathy. Colonic diverticulosis is present without evidence of diverticulitis. The appendix is not well-visualized; however, there are no significant inflammatory changes in the right lower quadrant to suggest appendicitis. No pneumoperitoneum or ascites is seen. Mild degenerative changes are seen at L4/5. No acute osseous abnormality is identified. IMPRESSION: Noacute abdominopelvic abnormality is identified. Colonic diverticulosis without evidence of diverticulitis. 3.4 cm left ovarian cyst. at 0955 Reported and signed by: Ole Maldonado MD [facility] [place] NAME: FARA FARMER [address] PHYS: NATHALIA EtienneEli [place] [address] : 1975 AGE: 47 SEX: F LOC: B.[employer] PHONE #: [phone] EXAM DATE: 11/03/2022 STATUS: REG ER FAX #: [phone] RAD #: D/C DT PAGE 1 Signed Report (CONTINUED) Patient Name: FARA FARMER Unit No: [id number] EXAMS: CPT CODE: [id number] CT ABD PELVIS W/CONT 10919 (Continued) CC: Eli Etienne DictatedDate/Time: 11/03/2022 (954) Technologist: MARYANNE Hammonds(Layla)(CT) CTDI: 28.46 DLP: 1429.22 Trnscrpt: 11/03/2022 (954) Lucrecia7 [facility] NAME: FARA FARMER [address] [place] [address] PHYS:TRACEYLASHAWN EtienneEli Pat[place]Br[place] [address] : 1975 AGE: 47 SEX: F LOC: B.[employer] PHONE #: [phone] EXAM DATE: 11/03/2022 STATUS: REG ER FAX #: [phone] RAD #: D/C DT PAGE 2 Signed Report Patient Name: FARA FARMER Unit No: [id number] EXAMS: CPT CODE: [id number] ABD PELVIS W/CONT 08718 (Continued) Orig Print D/T: S: 11/03/2022 (0959) [facility] [place] NAME: FARA FARMER [address] [place] [address] PHYS: NATHALIA EtienneEli Qi [place] [address] : 1975 AGE: 47 SEX: F LOC: JAVIER PHONE #: [phone] EXAM DATE: 11/03/2022 STATUS: REG ER FAX #: [phone] RAD #: D/C DT PAGE 3 Signed ReportTROPONIN I 2022-10-20 17:00:23 Test Item Value Reference Range Interpretation Comments TROPONIN I (test code = 0.005 ng/mL <=0.034 8094532661) ABENA (test code = ABENA) Reference (Normal) Range (defined by the 99th percentile reference limit): <= 0.034 ng/mL Note: Cardiac troponin begins to rise 3-4 hours after the onset of ischemia. Repeat in 4-6 hours if the sample was drawn within 3-4 hours of the onset of the symptom and found normal. Diagnosis of myocardial injury is made with acute changes in cTn concentrations with at least one serial sample above the 99th percentile upper reference limit (URL), taken together with the patient's clinical presentation. Biotin has been reported to cause a negative bias, interpret results relative to patient's use of biotin. Lab Interpretation Normal (test code = 94765-7) [facility] [id number] 16:56:59 Test Item Value Reference Range Interpretation Comments NT-proBNP (test code = 57 pg/mL <=125 7258413088) ABENA (test code = ABENA) Biotin has been reported to cause a negative bias, interpret results relative to patient's use of biotin. Lab Interpretation (test Normal code = 87454-8) [facility] Center[facility]UM2023-03-08 16:48:59 Test Item Value Reference Range Interpretation Comments MAGNESIUM (test code = 8546013192) 2.1 mg/dL 1.7-2.4 Lab Interpretation (test code = Normal 48936-3) [facility]. METABOLIC PANEL (66146)2022-10-20 16:48:23 Test Item Value Reference Range Interpretation Comments NA (test code = 134 mmol/L 135-145 L 4753818520) K (test code = 4.7 mmol/L 3.5-5.0 4867298740) CL (test code = 105 mmol/L 98-108 6449610055) CO2 TOTAL (test code = 21 mmol/L 23-31 L 2198594986) AGAP (test code = 8 2-16 6398616008) BUN (test code = 13 mg/dL 7-23 0912699628) GLUCOSE (test code = 116 mg/dL 70-110 H 2727270534) CREATININE (test code = 0.69 mg/dL 0.50-1.04 0982183188) TOTAL BILI (test code = 0.5 mg/dL 0.1-1.9 8212012155) CALCIUM (test code = 8.6 mg/dL 8.6-10.6 0736440072) T PROTEIN (test code = 6.9 g/dL 6.3-8.2 6737525400) ALBUMIN (test code = 4.3 g/dL 3.5-5.0 4429462801) ALK PHOS (test code = 72 U/L 34-122 3130214120) ALTv (test code = 24 U/L 5-35 1742-6) AST(SGOT) (test code = 27 U/L 13-40 0069322242) eGFR (test code = 90.8 mL/min/1.73m2 3026960715) ABENA (test code = ABENA) Association of Glomerular Filtration Rate (GFR) and Staging of Kidney Disease* + --+ --+ ------+| GFR (mL/min/1.73 m2) ?| With Kidney Damage ?| ?Without Kidney Damage+ --------+ --------+ +| ?>90 ?| ?Stage one ?| ? Normal ?+ ---+ ---+ -------+| ?60-89 ?| ?Stage two ?| ? Decreased GFR ? + --+ --+ ------+| ?30-59 ?| ?Stage three ?| ? Stage three ? + --+ --+ ------+| ?15-29 ?| ?Stage four ? | ? Stage four ?+ ---+ ---+ -------+| ?<15 (or dialysis) ? ?| ?Stage five ? | ? Stage five ?+ ---+ ---+ -------+ *Each stage assumes the associated GFR level has been in effect for at least three months. ?Stages 1 to 5, with or without kidney disease, indicate chronic kidney disease. Notes: Determination of stages one and two (with eGFR >59mL/min/1.73 m2) requires estimation of kidney damage for at least three months as defined by structural or functional abnormalities of the kidney, manifested by either:Pathological abnormalities or Markers of kidney damage (including abnormalities in the composition of the blood or urine or abnormalities in imaging tests). Lab Interpretation Abnormal (test code = 57401-4) [facility] Center[facility]IPASE2023-03-08 16:48:02 Test Item Value Reference Range Interpretation Comments LIPASE (test code = 7841131791) 152 U/L 0-220 Lab Interpretation (test code = Normal 41786-8) [facility] Center[facility] WITH [id number] 16:34:00 Test Item Value Reference Range Interpretation Comments WBC (test code = 5.19 See_Comment [Automated 1337-2) message] The sy stem which generated this result transmitted reference range : 4.30 - 11.10 10*3/?L. The reference range was not used to interpret this result as normal/abnormal . RBC (test code = 4.37 See_Comment [Automated 430-2) message] The sy stem which generated this result transmitted reference range : 3.93 - 5.25 10*6/?L. The reference range was not used to interpret this result as normal/abnormal . HGB (test code = 13.2 g/dL 11.6-15.0 718-7) HCT (test code = 38.9 % 35.7-45.2 4544-3) MCV (test code = 89.0 fL 80.6-95.5 787-2) MCH (test code = 30.2 pg 25.9-32.8 785-6) MCHC (test code = 33.9 g/dL 31.6-35.1 786-4) RDW-SD (test code = 51.8 fL 39.0-49.9 H 70114-5) RDW-CV (test code = 15.8 % 12.0-15.5 H 788-0) PLT (test code = 297 See_Comment [Automated 777-3) message] The sy stem which generated this result transmitted reference range : 166 - 358 10*3/ ?L. The reference r julia was not used to interpret this result as normal/abnormal . MPV (test code = 9.3 fL 9.5-12.9 L 22976-7) NRBC/100 WBC (test 0.0 See_Comment [Automat ed code = 7804946961) message] The system which generated this result transmitted reference range : 0.0 - 10.0 /100 WBCs. The refer ence range was not u sed to interpret th is result as normal/abnormal . NRBC x10^3 (test code See_Comment [Auto mated = 8316688354) message] The s ystem which generated this result transmitted reference range : 10*3/?L. The reference range was not used to interpret this result as normal/abnormal . GRAN MAT (NEUT) % 59.7 % (test code = 770-8) IMM GRAN % (test code 0.20 % = 4907051351) LYMPH % (test code = 28.7 % 736-9) MONO % (test code = 8.7 % 5905-5) EOS % (test code = 2.1 % 713-8) BASO % (test code = 0.6 % 706-2) GRAN MAT x10^3(ANC) 3.10 10*3/uL 1.88-7.09 (test code = 0808557202) IMM GRAN x10^3 (test 0.00-0.06 code = 6299826819) LYMPH x10^3 (test code 1.49 10*3/uL 1.32-3.29 = 731-0) MONO x10^3 (test code 0.45 10*3/uL 0.33-0.92 = 742-7) EOS x10^3 (test code = 0.11 10*3/uL 0.03-0.39 711-2) BASO x10^3 (test code 0.03 10*3/uL 0.01-0.07 = 704-7) Lab Interpretation Abnormal (test code = 26137-9) [facility] 12 [id number] 04:17:30 Test Item Value Reference Range Interpretation Comments Ventricular rate (test 78 code = 253) Atrial rate (test code 78 = 255) WV interval (test code 164 = 266) QRSD interval (test 72 code = 260) QT interval (test code 348 = 264) QTC interval (test code 396 = 265) P axis 1 (test code = 41 267) QRS axis 1 (test code = 41 268) T wave axis (test code 41 = 270) EKG impression (test Normal sinus code = 273) rhythm-Low voltage QRS-Borderline ECG-In automated comparison with ECG of 26-SEP-2014 22:45,-No significant change was found- [place] [address] [id number] 04:17:30 Test Item Value Reference Range Interpretation Comments Ventricular rate (test 78 code = 253) Atrial rate (test code 78 = 255) WV interval (test code 164 = 266) QRSD interval (test 72 code = 260) QT interval (test code 348 = 264) QTC interval (test code 396 = 265) P axis 1 (test code = 41 267) QRS axis 1 (test code = 41 268) T wave axis (test code 41 = 270) EKG impression (test Normal sinus code = 273) rhythm-Low voltage QRS-Borderline ECG-In automated comparison with ECG of 26-SEP-2014 22:45,-No significant change was found- [facility], (w Contrast, Strain and 3D if needed)2022-09-01 18:41:15 Test Item Value Reference Interpretation Comments Range Ao Root Diameter 2.91 cm (test code = 0356606605) AoV Area, Vmax (test 1.96 cm2 >=1.5 code = 8338448978) AoV Area, VTI (test 1.68 cm2 code = 8631204217) AoV Mean PG (test 3.19 mmHg code = 1844876047) AoV Peak PG (test 5.18 mmHg code = 0175222465) AoV Vmax (test code 1.14 m/s = 9779120515) AoV VTI (test code = 0.24 m 9018208829) BSA Adams (test code 1.92 m2 = 3109158932) BSA (test code = 1.85 m2 1274792632) IVS,d (test code = 1.07 cm 0.6-0.9 A 2259567407) IVS/LVPW,2D (test 1.01 code = 4671585515) Left Atrium 3.41 cm Dimension Anterior (test code = 6658229860) LV,d (test code = 4.19 cm 7903895374) LV EF,2D (test code 76.47 % = 4236368135) LV,s (test code = 2.59 cm 0159035604) LVOT area (test code 2.60 cm2 = 8473877383) LVOT Diam,S (test 1.82 cm code = 7799676339) LVOT Vmax (test code 0.86 m/s = 9471201397) LVOT VTI (test code 0.15 m = 2594615325) LVPWD,d (test code = 1.07 cm 0.60-1.19 6714358503) MV E A ratio (test 1.07 code = 2374132243) RA pressure (test 3.00 mmHg code = 1761596699) AoV area i VTI BSA 0.91 cm2/m2 >=0.85 Rose (test code = 7143680047) BMI (test code = 28.32 kg/m2 5751272479) E wave decelartion 262.12 See_Comment [Automat ed time (test code = message] T he 0694232147) system which generated this result transmitted reference range : 200 msec. The reference range was not used to interpret this result as normal/abnormal . MV Peak A Patric (test 0.70 m/s code = 4097786576) MV valve area p 1/2 2.89 cm2 method (test code = 3807691715) MV Peak E Patric (test 0.75 m/s code = 9027438047) MV stenosis pressure 76.02 ms 1/2 time (test code = 2898625315) LVOT stroke volume 0.39 ml (test code = 4020869141) AV LVOT peak 2.96 mmHg gradient (test code = 1389588961) Ao Root Diameter 2.91 cm (test code = 4059519713) LV SYS VOL (test 24.33 ml 14-42 code = 1232747940) LV HURLEY VOL (test 78.25 ml 46-106 code = 8650586921) LA area s A4C (test 18.24 cm2 code = 3617142463) LV SI Teich 2D (test 29.22 ml/m2 code = 0364328203) LV SV Teich 2D (test 53.92 ml code = 4839615103) LV Vol s Teich PSAX 24.33 ml (test code = 2246832818) LVOT CI (test code = 1.61 l/min/m2 0884552629) LVOT CO (test code = 2.96 l/min 2088171727) LVOT HR for LVOT CO 74.80 bpm (test code = 8835157381) LVOT SI (test code = 21.47 ml/m2 7347551958) BSA Haycock (test 1.90 m2 code = 7477080869) AoV Vmn (test code = 0.86 m/s 1928877442) LV FS Teich 2D (test 38.27 code = 4058320080) MV AE ratio (test 0.93 code = 8586948451) LV FS Cube 2D (test 38.27 code = 6047432161) LVOT Vmn (test code 0.57 = 2082784696) Pt Size (test code = 165.00 0412993296) Pt Wt (test code = 77.11 6401823164) Aov area Vmn (test 1.72 cm2 code = 5130988411) LA A_P score P (test 1.30 code = 5237291584) LVOT mean grad (test 1.45 mmHg code = 9318352189) 85 of MPHR (test 145.96 code = 2903911284) AoV area I VMN bsa 0.93 cm2/m2 (test code = 9935540932) Calc MPHR (test code 171.72 bpm = 3614223540) LV SI Cube 2D (test 30.54 ml/m2 code = 7315621309) LV SV Cube 2D (test 56.36 ml code = 9224251786) LV vol d cube 2D 73.70 ml (test code = 8453505128) LV vol s cube 2D 17.34 ml (test code = 4338406423) MV Decel slope (test 2.87 m/s2 code = 3430382826) Pred Exer Dur R1 9.17 (test code = 0263440157) Pred METS R1 (test 8.42 code = 8984375202) LA Vol MOD A4C (test 54.30 ml code = 7042441486) Velocity Ratio 0.75 m/s (V1/V2) (test code = 4689) EF (test code = 69 % 9699852640) E/A ratio (test code 1.07 = 4908260763) LVOT VTI (CM) (test 15.00 cm code = 7292769228) ABENA (test code = ABENA) Left Ventricle: Normal wall motion. Normal systolic function with a visually estimated EF of 65 - 70%. No PFO present viewable by color Doppler and agitated saline. There is no pericardial effusion present. Left VentricleLeft ventricle size is normal. Normal wall thickness. Normal wall motion. Normal systolic function with a visually estimated EF of 65 - 70%. Normal diastolic function.Right VentricleRight ventricle size is normal. Normal systolic function.Left AtriumLeft atrium size is normal. No PFO present viewable by color Doppler and agitated saline.Right AtriumRight atrium size is normal.IVC/SVCIVC diameter is less than or equal to 21 mm and decreases greater than 50% during inspiration; therefore the estimated right atrial pressure is normal (~3 mmHg). IVC shows normal flow patterns.Mitral ValveValve structure is normal. No leaflet thickening. No leaflet calcification. No restricted motion. No significant valvular regurgitation. Normal pulmonary vein flow. No stenosis.Tricuspid ValveValve structure is normal. No restricted motion. Trace valvular regurgitation. RAP is 3.00 mmHg. No stenosis.Aortic ValveValve structure appears tricuspid. No cusp sclerosis. No cusp calcification. No restricted motion. No significant valvular regurgitation. No stenosis.Pulmonic ValveValve structure is normal. Trace valvular regurgitation. No stenosis.Pericardium There is no pericardial effusion present.AortaNormal sized annulus, aortic root and abdominal aorta.Study DetailsStudy quality was adequate. A complete 2D, color flow Doppler and spectral Doppler echocardiogram was performed.The apical, parasternal, subcostal and suprasternal views were obtained. Patient exhibited sinus rhythm. Lab Interpretation Abnormal (test code = 89975-7) [facility], (w Contrast, Strain and 3D if needed)2022-09-01 18:41:15 Test Item Value Reference Interpretation Comments Range Ao Root Diameter 2.91 cm (test code = 2317302077) AoV Area, Vmax (test 1.96 cm2 >=1.5 code = 6827322780) AoV Area, VTI (test 1.68 cm2 code = 0885196138) AoV Mean PG (test 3.19 mmHg code = 4573453496) AoV Peak PG (test 5.18 mmHg code = 5354783928) AoV Vmax (test code 1.14 m/s = 0272019761) AoV VTI (test code = 0.24 m 7473730325) BSA Adams (test code 1.92 m2 = 4738602172) BSA (test code = 1.85 m2 7994468396) IVS,d (test code = 1.07 cm 0.6-0.9 A 2131183550) IVS/LVPW,2D (test 1.01 code = 1021434206) Left Atrium 3.41 cm Dimension Anterior (test code = 2911206032) LV,d (test code = 4.19 cm 4535269106) LV EF,2D (test code 76.47 % = 1428878246) LV,s (test code = 2.59 cm 4539406225) LVOT area (test code 2.60 cm2 = 1052496498) LVOT Diam,S (test 1.82 cm code = 4818840084) LVOT Vmax (test code 0.86 m/s = 6026356147) LVOT VTI (test code 0.15 m = 1184083615) LVPWD,d (test code = 1.07 cm 0.60-1.19 4305609178) MV E A ratio (test 1.07 code = 7300561626) RA pressure (test 3.00 mmHg code = 3181999356) AoV area i VTI BSA 0.91 cm2/m2 >=0.85 Rose (test code = 1186855476) BMI (test code = 28.32 kg/m2 7514311319) E wave decelartion 262.12 See_Comment [Automat ed time (test code = message] T he 6948473711) system which generated this result transmitted reference range : 200 msec. The reference range was not used to interpret this result as normal/abnormal . MV Peak A Patric (test 0.70 m/s code = 4872433065) MV valve area p 1/2 2.89 cm2 method (test code = 2578716986) MV Peak E Patric (test 0.75 m/s code = 0405505363) MV stenosis pressure 76.02 ms 1/2 time (test code = 6956096869) LVOT stroke volume 0.39 ml (test code = 1589893363) AV LVOT peak 2.96 mmHg gradient (test code = 9770209444) Ao Root Diameter 2.91 cm (test code = 5991794694) LV SYS VOL (test 24.33 ml 14-42 code = 2020077459) LV HURLEY VOL (test 78.25 ml 46-106 code = 1178904503) LA area s A4C (test 18.24 cm2 code = 9933460561) LV SI Teich 2D (test 29.22 ml/m2 code = 7079206018) LV SV Teich 2D (test 53.92 ml code = 6576487422) LV Vol s Teich PSAX 24.33 ml (test code = 7519974443) LVOT CI (test code = 1.61 l/min/m2 2791810886) LVOT CO (test code = 2.96 l/min 2852880705) LVOT HR for LVOT CO 74.80 bpm (test code = 8441030051) LVOT SI (test code = 21.47 ml/m2 4306253682) BSA Haycock (test 1.90 m2 code = 2140081703) AoV Vmn (test code = 0.86 m/s 4175495812) LV FS Teich 2D (test 38.27 code = 6555192808) MV AE ratio (test 0.93 code = 8619155154) LV FS Cube 2D (test 38.27 code = 1185019402) LVOT Vmn (test code 0.57 = 5800999974) Pt Size (test code = 165.00 8397138522) Pt Wt (test code = 77.11 5651492088) Aov area Vmn (test 1.72 cm2 code = 2280493372) LA A_P score P (test 1.30 code = 4030472965) LVOT mean grad (test 1.45 mmHg code = 2773244123) 85 of MPHR (test 145.96 code = 1824956986) AoV area I VMN bsa 0.93 cm2/m2 (test code = 3653919565) Calc MPHR (test code 171.72 bpm = 0975855538) LV SI Cube 2D (test 30.54 ml/m2 code = 5162160478) LV SV Cube 2D (test 56.36 ml code = 2470261142) LV vol d cube 2D 73.70 ml (test code = 8881648566) LV vol s cube 2D 17.34 ml (test code = 4440340633) MV Decel slope (test 2.87 m/s2 code = 6907181619) Pred Exer Dur R1 9.17 (test code = 4236999449) Pred METS R1 (test 8.42 code = 3271599958) LA Vol MOD A4C (test 54.30 ml code = 9099443455) Velocity Ratio 0.75 m/s (V1/V2) (test code = 4689) EF (test code = 69 % 9480856409) E/A ratio (test code 1.07 = 0160293489) LVOT VTI (CM) (test 15.00 cm code = 6622961053) ABENA (test code = ABENA) Left Ventricle: Normal wall motion. Normal systolic function with a visually estimated EF of 65 - 70%. No PFO present viewable by color Doppler and agitated saline. There is no pericardial effusion present. Left VentricleLeft ventricle size is normal. Normal wall thickness. Normal wall motion. Normal systolic function with a visually estimated EF of 65 - 70%. Normal diastolic function.Right VentricleRight ventricle size is normal. Normal systolic function.Left AtriumLeft atrium size is normal. No PFO present viewable by color Doppler and agitated saline.Right AtriumRight atrium size is normal.IVC/SVCIVC diameter is less than or equal to 21 mm and decreases greater than 50% during inspiration; therefore the estimated right atrial pressure is normal (~3 mmHg). IVC shows normal flow patterns.Mitral ValveValve structure is normal. No leaflet thickening. No leaflet calcification. No restricted motion. No significant valvular regurgitation. Normal pulmonary vein flow. No stenosis.Tricuspid ValveValve structure is normal. No restricted motion. Trace valvular regurgitation. RAP is 3.00 mmHg. No stenosis.Aortic ValveValve structure appears tricuspid. No cusp sclerosis. No cusp calcification. No restricted motion. No significant valvular regurgitation. No stenosis.Pulmonic ValveValve structure is normal. Trace valvular regurgitation. No stenosis.Pericardium There is no pericardial effusion present.AortaNormal sized annulus, aortic root and abdominal aorta.Study DetailsStudy quality was adequate. A complete 2D, color flow Doppler and spectral Doppler echocardiogram was performed.The apical, parasternal, subcostal and suprasternal views were obtained. Patient exhibited sinus rhythm. Lab Interpretation Abnormal (test code = 01820-7) [facility] [Presence] in Respiratory specimen by LATHA with probe [id number] 22:38:57 Test Item Value Reference Range Interpretation Comments SARS-CoV-2 (COVID-19) RNA Not detected [Presence] in Respiratory specimen by LATHA with probe detection (test code = 20941-1) Whether patient is employed in a Unknown healthcare setting (test code = 60643-2) Whether the patient has symptoms Unknown related to condition of interest (test code = 33561-2) Whether the patient was Unknown hospitalized for condition of interest (test code = 33576-0) Whether the patient was admitted Unknown to intensive care unit (ICU) for condition of interest (test code = 97627-2) Whether patient resides in a Unknown congregate care setting (test code = 30124-3) status (test code = Unknown 59677-4) Date and time of symptom onset Unknown (test code = 90402-1) [facility] METABOLIC [id number] 18:13:00 Test Item Value Reference Range Interpretation Comments SODIUM (BEAKER) 136 meq/L 135-148 (test code = 381) POTASSIUM (BEAKER) 4.7 meq/L 3.6-5.5 (test code = 379) CHLORIDE (BEAKER) 108 meq/L 98-106 H (test code = 382) CO2 (BEAKER) (test 23 meq/L 20-29 code = 355) BLOOD UREA NITROGEN 14 mg/dL 10-26 (BEAKER) (test code = 354) CREATININE (BEAKER) 0.82 mg/dL 0.50-1.20 (test code = 358) GLUCOSE RANDOM 80 mg/dL 70-110 (BEAKER) (test code = 652) CALCIUM (BEAKER) 7.4 mg/dL 8.5-10.5 L (test code = 697) EGFR (BEAKER) (test 75 mL/min/1.73 ESTIMA DAISY GFR IS code = 1092) sq m NOT ACCURATE CREATININE CLEARANCE IN PREDICTING GLOMERULAR FILTRATION RATE . ESTIMATED GFR I S NOT APPLICABLE FOR DIALYSIS PATIEN TS. HCG, SERUM, [id number] 18:01:00 Test Item Value Reference Range Interpretation Comments TEST SERUM (BEAKER) (test Negative code = 584) CBC W/PLT COUNT & AUTO [id number] 17:53:00 Test Item Value Reference Range Interpretation [...] = 2801) RAD, CHEST, 1 VIEW, NON [id number] 17:41:00Reason for exam:->DIZZINESSIs the patient ?->UnknownShould this [...] exam. IMPRESSION: No acute cardiopulmonary abnormality. Signed: Kendall Martinez Verified Date/Time: 07/18/2019 17:41:06 Reading Location: [place] [address] [phone] TSH/FREE T4 IF [id number] 11:33:00 Test Item Value Reference Range Interpretation Comments THYROID STIMULATING HORMONE 0.79 uIU/mL 0.35-5.50 (BEAKER) (test code = 772) [id number] 11:16:00 Test Item Value Reference Range Interpretation Comments PHOSPHORUS (BEAKER) (test code = 3.4 mg/dL 2.5-4.5 604) [id number] 11:16:00 Test Item Value Reference Range Interpretation Comments MAGNESIUM (BEAKER) (test code = 1.6 mg/dL 1.5-3.0 627) COMPREHENSIVE METABOLIC [id number] 11:16:00 Test Item Value Reference Range Interpretation [...] 347) EGFR (BEAKER) (test 85 mL/min/1.73 ESTIMA DAISY GFR IS code = 1092) sq m NOT ACCURATE CREATININE CLEARANCE IN PREDICTING GLOMERULAR FILTRATION RATE . ESTIMATED GFR I S NOT APPLICABLE FOR DIALYSIS PATIEN TS. CBC W/PLT COUNT & AUTO [id number] 10:55:00 Test Item Value Reference Range Interpretation [...] = 2801) RAD, CHEST, 1 VIEW, NON [id number] 10:26:00Reason for exam:- >palpitationsIs the patient ?->UnknownFINAL REPORT INDICATION: palpitations COMPARISON: January 29, 2015 TECHNIQUE: Single frontal view of the chest. FINDINGS: Lungs and pleura: Clear lungs. No effusion.Heart and mediastinum: Normal heart size. Unremarkable mediastinal contours.Osseous structures: No acute abnormality.Other: None. IMPRESSION: No acute intrathoracic abnormality. Signed: Opal Jara D ate/Time: 04/09/2019 10:26:42 Reading Location: [facility] Radiology Reading Room [facility] AND [id number] 15:22:00 Test Item Value Reference Range Interpretation Comments UA Urobilinogen (test code = UA <=1.0 mg/dL 0.1-1.0 Urobilinogen) [facility] AND [id number] 15:22:00 Test Item Value Reference Range Interpretation Comments UA Ketones (test code = UA Ketones) Negative [facility] AND [id number] 15:22:00 Test Item Value Reference Range Interpretation Comments UA Nitrite (test code Negative (04/30/17 10:22 = UA Nitrite) AM) [facility] AND [id number] 15:22:00 Test Item Value Reference Range Interpretation Comments UA Blood (test code = Moderate *ABN*(04/30/17 UA Blood) 10:22 AM) [facility] AND [id number] 15:22:00 Test Item Value Reference Range Interpretation Comments UA Bili (test code = Negative *NA*(04/30/17 UA Bili) 10:22 AM) [facility] AND [id number] 15:22:00 Test Item Value Reference Range Interpretation Comments UA Protein (test code = UA Negative mg/dL Protein) [facility] AND [id number] 15:22:00 Test Item Value Reference Range Interpretation Comments UA Glucose (test code = UA Negative mg/dL Glucose) [facility] AND [id number] 15:22:00 Test Item Value Reference Range Interpretation Comments UA pH (test code = UA pH) 7.0 5.0-8.0 [facility] AND [id number] 15:22:00 Test Item Value Reference Range Interpretation Comments UA Spec Grav (test code = UA Spec Grav) 1.004 [facility] AND [id number] 15:22:00 Test Item Value Reference Range Interpretation Comments UA Color (test code = Light Yellow UA Color) *NA*(04/30/17 10:22 AM) [facility] AND [id number] 15:22:00 Test Item Value Reference Range Interpretation Comments UA Turbidity (test code Marked *ABN*(04/30/17 = UA Turbidity) 10:22 AM) [facility] [id number] 15:22:00 Test Item Value Reference Range Interpretation Comments U Preg (test code = U Negative (04/30/17 10:22 Preg) AM) [facility] AND [id number] 15:22:00 Test Item Value Reference Range Interpretation Comments UA Bacteria (test code = UA Many /HPF Bacteria) [facility] AND [id number] 15:22:00 Test Item Value Reference Range Interpretation Comments UA Bacteria (test code = UA Many /HPF Bacteria) [facility] AND [id number] 15:22:00 Test Item Value Reference Range Interpretation Comments UA WBC (test code = no gt See_Comment [Automa daisy message] The UA WBC) system which ge nerated this result transmit daisy reference range : <=5. The reference range was not used to interpr et this result as liza l/abnormal. [facility] AND [id number] 15:22:00 Test Item Value Reference Range Interpretation Comments UA Mucus (test code = UA Mucus) Few /[facility]F [facility] [id number] 15:22:00 Test Item Value Reference Range Interpretation Comments UA Sq Epi (test code = UA Sq Epi) Few /LPF [facility] AND [id number] 15:22:00 Test Item Value Reference Range Interpretation Comments UA Leuk Est (test code Large *ABN*(04/30/17 = UA Leuk Est) 10:22 AM) [facility] AND [id number] 15:22:00 Test Item Value Reference Range Interpretation Comments UA RBC (test code = no gt See_Comment [Automa daisy message] The UA RBC) system which ge nerated this result transmit daisy reference range : <=2. The reference range was not used to interpr et this result as liza l/abnormal. [facility] AND [id number] 15:22:00 Test Item Value Reference Range Interpretation Comments UA Urobilinogen (test code = UA <=1.0 mg/dL 0.1-1.0 Urobilinogen) [facility] AND [id number] 15:22:00 Test Item Value Reference Range Interpretation Comments UA Ketones (test code = UA Ketones) Negative [facility] AND [id number] 15:22:00 Test Item Value Reference Range Interpretation Comments UA Nitrite (test code Negative (04/30/17 10:22 = UA Nitrite) AM) [facility] AND [id number] 15:22:00 Test Item Value Reference Range Interpretation Comments UA Blood (test code = Moderate *ABN*(04/30/17 UA Blood) 10:22 AM) [facility] AND [id number] 15:22:00 Test Item Value Reference Range Interpretation Comments UA Bili (test code = Negative *NA*(04/30/17 UA Bili) 10:22 AM) [facility] AND [id number] 15:22:00 Test Item Value Reference Range Interpretation Comments UA Protein (test code = UA Negative mg/dL Protein) [facility] AND [id number] 15:22:00 Test Item Value Reference Range Interpretation Comments UA Glucose (test code = UA Negative mg/dL Glucose) [facility] AND [id number] 15:22:00 Test Item Value Reference Range Interpretation Comments UA pH (test code = UA pH) 7.0 5.0-8.0 [facility] AND [id number] 15:22:00 Test Item Value Reference Range Interpretation Comments UA Spec Grav (test code = UA Spec Grav) 1.004 [facility] [id number] 15:22:00 Test Item Value Reference Range Interpretation Comments UA Color (test code = Light Yellow UA Color) *NA*(04/30/17 10:22 AM) [facility] [id number] 15:22:00 Test Item Value Reference Range Interpretation Comments UA Turbidity (test code Marked *ABN*(04/30/17 = UA Turbidity) 10:22 AM) [facility] [id number] 15:22:00 Test Item Value Reference Range Interpretation Comments U Preg (test code = U Negative (04/30/17 10:22 Preg) AM) [facility] [id number] 15:22:00 Test Item Value Reference Range Interpretation Comments UA WBC (test code = no gt See_Comment [Automa daisy message] The UA WBC) system which ge nerated this result transmit daisy reference range : <=5. The reference range was not used to interpr et this result as liza l/abnormal. [facility] [id number] 15:22:00 Test Item Value Reference Range Interpretation Comments UA Mucus (test code = UA Mucus) Few /LPF [facility] [id number] 15:22:00 Test Item Value Reference Range Interpretation Comments UA Sq Epi (test code = UA Sq Epi) Few /LPF [facility] [id number] 15:22:00 Test Item Value Reference Range Interpretation Comments UA Leuk Est (test code Large *ABN*(04/30/17 = UA Leuk Est) 10:22 AM) [facility] [id number] 15:22:00 Test Item Value Reference Range Interpretation Comments UA RBC (test code = no gt See_Comment [Automa daisy message] The UA RBC) system which ge nerated this result transmit daisy reference range : <=2. The reference range was not used to interpr et this result as liza l/abnormal. Efrain Muniz Notes Date/Time Note Provider Source 2022-11-03 09:47:00-00:00 [facility] ([facility]) EMERGENCY PROVIDER REPORT REPORT#:[id number] REPORT STATUS: Signed DATE:11/03/22 TIME: 946 PATIENT: FARA FARMER UNIT #: [id number] ROOM/BED: AGE: 47 SEX: F PCP PHYS: No Primary or Family Ph ysician SERVICE AUTHOR: Eli Etienne APRN TRIMMER MACHINE OPERATOR * ALL edits or amendments must be made on the AWID/computer document * Etienne,Eli Aguilar 11/03/22 0947: HPI-Abd Pain F 40 and Over General Initial Greet Date/Time 11/03/22 0840 Presentation Chief Complaint Flank pain R Hx Obtained From Patient Sudden in Onset? No Context Recent Healthcare No recent doctor visit, No rec ent hospitalization Free Text HPI Notes Free Text HPI Notes 47 year-old female presents to the ER for complaints of right flank pain rating to the right lower quadrant abdominal region x9 days. Pain initially began as right flank pain post gettin g off of the couch so she thought it was possibly a muscle strain. States then it began to increase with movement and bending sitting. The pain radiated to her right hip into her right butt cheek. Now she is hurting to her right lower quadrant region. D enies nausea vomiting fever Past Medical History - Adult Stated Complaint R HIP PAIN X 9 DAYS Allergies Coded Allergies: No Known Allergies (07/09/17) Physical Exam Vital Signs Vital Signs First Documented: Result Date Time Pulse Ox 99 11/03 0840 B/P 148/87 11/03 0840 B/P Mean 107 11/03 0840 O2 Delivery Room air 11/03 0840 Temp 98.6 11/03 0840 Pulse 83 11/03 0840 Resp 16 11/03 0840 Last Documented: Result Date Time Pulse Ox 99 11/03 1114 B/P 135/87 11/03 1114 B/P Mean 103 11/03 1114 O2 Delivery Room air 11/03 1114 Temp 98.6 11/03 1114 Pulse 71 11/03 1114 Resp 16 11/03 1114 Review of Vital Signs Reviewed Focused PE General/Const General/Const Awake, Alert MS Head Head Atraumatic, Normocephalic Eyes Eyes Atraumatic, PERRL, EOMI Ears/Nose/Throat Ears/Nose/Throat Airway patent, Mucous membrane s moist, Pharynx NL Resp/Chest Respiratory/Chest Breath sounds NL, Breath soun ds = bilat, No respiratory distress, No rales, No rhonchi, No wheezing Cardiovascular Cardiovascular Heart rate NL, Regular rhythm, H eart sounds NL, Peripheral circulation NL Abdomen/GI Abdomen/GI Soft, Non-tender, McBurney's non-ten jose, No guarding, No rebound, BS normoactive, No distention, No hernia, No pal pable mass, No pulsatile mass MS Back Back Atraumatic, Inspection NL, Full range of m otion, Non-tender, No CVA tenderness Text/Dict Notes painful rom.. Muscle Spasm/ROM Gluteus tenderness R. Skin Skin Color NL, Warm, Dry, Turgor NL Neurologic Neurologic Oriented X3, Speech NL, No motor def icits, No sensory deficits Interpretation Diagnostics Lab Results Interpretation Results Laboratory Tests 11/03/2243: [Embedded Image Not Available] Laboratory Tests: 11/03 942 Chemistry Sodium (133 - 144 mmol/L) 135.0 Potassium (3.5 - 5.1 mmol/L) 4.3 Chloride (95 - 105 mmol/L) 105 Carbon Dioxide (21 - 32 mmol/L) 25 Anion Gap (4.0 - 15.0 GAP calc) 5.0 BUN (7 - 18 MG/DL) 16 Creatinine (0.55 - 1.30 MG/DL) 0.84 Glomerular Filtr Rate (>60 estGFR) 86 Glucose (70 - 110 MG/DL) 105 Calcium (8.5 - 10.1 MG/DL) 9.6 Total Bilirubin (0.00 - 1.00 MG/DL) 0.21 Direct Bilirubin (0.00 - 0.30 MG/DL) < 0.10 Indirect Bilirubin (0.2 - 1.3 MG/DL) CALC KAREN L AST (15 - 37 Unit/L) 17 ALT (12 - 78 Unit/L) 27 Total Alk Phosphatase (45 - 117 Unit/L) 67 Total Protein (6.4 - 8.2 G/DL) 7.1 Albumin (3.4 - 5.0 G/DL) 4.2 Lipase (114 - 286 Unit/L) 143 Specimen Appearance (1 NORMAL Index/DL) 1 LIZA L <2 MG Specimen Hemolysis (1 NORMAL Index/DL) 1 NORMAL <10 MG Hematology WBC (4.1 - 12.1 K/mm3) 9.7 RBC (3.8 - 5.5 M/mm3) 4.26 Hgb (10.6 - 15.8 G/DL) 13.1 Hct (31.8 - 47.4 %) 40.7 MCV (80.1 - 101.1 fL) 95.5 MCH (25.3 - 35.3 pg) 30.8 MCHC (32.7 - 35.1 G/DL) 32.2 L RDW (12.2 - 16.4 %) 16.7 H Plt Count (155 - 337 K/mm3) 362 H MPV (6.8 - 11.2 fL) 9.2 Miscellaneous Maternal Serum HCG (0 - 3 mi-IU/ML) 2 11/03 0924 Urines Urine Color (YELLOW DESCRIPT) LIGHT-YELLOW Urine Appearance (CLEAR DESCRIPT) CLEAR Urine pH (4.6 - 8.0 pH UNITS) 7.0 Ur Specific [place] (1.001 - 1.035 SG) 1.007 Urine Protein (<30 (1+) mg/dL) NEGATIVE (0) Urine Glucose (UA) (0 (NORMAL) mg/dL) NORMAL (0 ) Urine Ketones ((NEG) 0 mg/dL) NEGATIVE (0) Urine Blood (0 (NEG) mg/dL) NEGATIVE (0.00) Urine Nitrite (NEG SCREEN) NEGATIVE (0) Urine Bilirubin ((NEG) 0 mg/dL) NEGATIVE (0.0) Urine Urobilinogen (<2.0 (1+) mg/Dl) NORMAL (0) Ur Leukocyte Esterase ((NEG) 0 Leuk/mcL) 250 H Urine RBC (0 - 3 #RBC/HPF) 0-3 Urine WBC (0 - 3 #WBC/HPF) 0-3 Ur Squamous Epith Cells (NONE - SQepi /UL) FEW >2 Urine Bacteria (NONE - FEW /HPF) TRACE >0 Urine Culture Screen (Cult byWBC Criteria) Crit NOTmet CULT-N/A Urine Comment (SpecComment NoteSPEC) SPECIMEN C OMMENT Recent Impressions: CAT SCAN - CT ABD PELVIS W/CONT 11/03 0970 Report Impression - Status: SIGNED Entered: 11/03/2022 0928 IMPRESSION: No acute abdominopelvic abnormality is identifie d. Colonic diverticulosis without evidence of diver ticulitis. 3.4 cm left ovarian cyst. Impression By: Anthony Maldonado MD Re-Evaluation MDM Free Text MDM Notes Additional Text MEDICAL DECISION MAKING Number and Complexity of Problems Differential Diagnosis : UTI, ureterolithiasis, flank pain, muscle spasm [facility] Data External documents reviewed: NA EKG interpretation: NA CT interpretation: No acute abdominopelvic abno rmality is identified. Colonic diverticulosis without evidence of diver ticulitis. 3.4 cm left ovarian cyst. Impression By: Anthony Maldonado MD X-ray interpretation: NA Ultrasound interpretation: N/A Labs reviewed by me are significant for: Unremar kable Decision rules/scores evaluated: NA Discussed with: patient I Considered admission for: N/A Treatment and Disposition:Follow-up with the [facility] [place] [facility] or your primary care doctor in the next 2 da ys for reevaluation of discomfort and ovarian cyst.. Drink plenty of fluids for hydration. Alternate between Tylenol and Motrin. Avoid heavy lifting, pushing, pulling as this ca n increase pain. Return to ER immediately for lower extremity weakness, numbne ss or tingling to the lower extremities, increased abdominal pain, vomiting or any worsening new or concerning symptoms. Do not drive or operate hea vy machinery while taking muscle relaxers as this medication may cause humberto wsiness. ED Course: Emergency diagnoses were considered a nd ruled out. Shared decision making: I discussed the pros and cons of all options with the patient and engaged in shared-decision making. Code status: N/A )( Re-Evaluation/Progress #1 Text/Dict Note On exam patient has tenderness to the right glut eal region. Patient reports discomfort radiates from her right paraspinal region to her right lower quadrant region. No tenderness to palpation to the right lower quadrant. No signs of trauma or injury. Time of Re-Eval 1035 ED Course Medication(s) Ordered Medication(s) Ordered: Central Nervous System Agents Sig/Sean Start time Last Medication Dose Route Stop Time Status Admin Morphine Sulfate 4 MG X1ED STA 11/03 0900 DC IV 11/03 0901 0948 Diagnostic Agents Sig/Sean Start time Last Medication Dose Route Stop Time Status Admin Iopamidol 75 ML .STK-MED ONE 11/03 934 DC 10/14 2 IV 11/03 0936 0935 Gastrointestinal Drugs Sig/Sean Start time Last Medication Dose Route Stop Time Status Admin Ondansetron HCl 4 MG X1ED PRN PRN 11/03 0900 DC 11/03 IV 0949 Hormones And Synthetic Substit Sig/Sean Start time Last Medication Dose Route Stop Time Status Admin Dexamethasone 8 MG X1ED STA 11/03 1050 DC 11/03 PO 11/03 1051 1108 Patient Discharge Departure Vital Signs/Condition Vital Signs First Documented: Result Date Time Pulse Ox 99 11/03 0840 B/P 148/87 11/03 0840 B/P Mean 107 11/03 0840 O2 Delivery Room air 11/03 0840 Temp 98.6 11/03 0840 Pulse 83 11/03 0840 Resp 16 11/03 0840 Last Documented: Result Date Time Pulse Ox 99 11/03 1114 B/P 135/87 11/03 1114 B/P Mean 103 11/03 1114 O2 Delivery Room air 11/03 1114 Temp 98.6 11/03 1114 Pulse 71 11/03 1114 Resp 16 11/03 1114 All vital signs available at the time of this en try have been reviewed. Clinical Impression Clinical Impression Primary Impression: Sciatica, right side Secondary Impressions: Right ovarian cyst Disposition Decision Discharge )( Discharged to Home Yes )( Time 1049 )( Date 11/03/22 Discharge/Care Plan Counseled Regarding Diagnosis, Need for follow-u p, When to return to ED (Auto) Prescriptions Current Visit Scripts IBUPROFEN (MOTRIN) 600 MG PO Q8HPRN PRN PAIN IBUPROFEN (MOTRIN) 600 MG PO Q8HPRN PRN PAIN #6 TABS CYCLOBENZAPRINE HCL (FLEXERIL) 5 MG PO Q8HPRN WV N MUSCLE SPASMS/PAIN CYCLOBENZAPRINE HCL (FLEXERIL) 5 MG PO Q8HPRN P RN MUSCLE SPASMS/PAIN #6 TABS Patient Instructions ED Ovarian Cyst, ED Sciatic a Additional Instructions Follow-up with the [facility] or your [facility] care doctor in the next 2 days for reevaluation of discomfort and ovarian cyst.. Drink plenty of fluids for hydration. Alternate between Tylenol and Mot rin. Avoid heavy lifting, pushing, pulling as this can increase pa in. Return to ER immediately for lower extremity weakness, numbness or tingling to the lower extremities, increased abdominal pain, vomiting or any worsening new or concerning symptoms. Do not drive or operate heavy machi laury while taking muscle relaxers as this medication may cause drowsiness. Discharge Note I have spoken with the patie nt and/or caregivers. I have explained the patient's condition, diagnoses and helen atment plan based on the information available to me at this time. I have answered the patient's and/ or caregiver's questions and addressed any concerns. The patient and/or careg andi have as good an understanding of the patient 's diagnosis, condition and treatment plan as can be expected at this point. The vital signs have bee n stable. The patient's condition is stable and appr opriate for discharge from the emergency department. The patient will pursue further outpatient evalu ation with the primary care physician or other designated or consulting phys ician as outlined in the discharge instructions. The patient and/or caregivers are agreeable to this plan of care and follow-up instructions have been exp lained in detail. The patient and/or caregivers have received these instructio ns in written format and have expressed an understanding of the discharge inst ructions. The patient and/or caregivers are aware that any significant change in condition or worsening of symptoms should prompt an immediate return to [facility] or the closest emergency department or a call to 1. Edison Dias 11/06/22 1623: Patient Discharge Departure Discharge/Care Plan Referrals Resource Referral: [facility] Address: [address] [place] [address] [place] [address] Supervising Physician Note MidLv Saw Pt Alone I have reviewed the PA/TRIMMER MACHINE OPERATOR's note and plan of car e. I was available for consultation as needed at al l times during the patient's visit in the emergency department. I agree with the clinical impression , plan and disposition. Electronically Signed by Eli Etienne 11/06/22 at 1534 Electronically Signed by Edison Dias DO on at 1624 RPT #:[id number] END OF REPORT 2022-11-03 09:01:00-00:00 [facility] ([facility]) EMERGENCY PROVIDER REPORT REPORT#:[id number] REPORT STATUS: Signed DATE:11/03/22 TIME: 900 PATIENT: FARA FARMER UNIT #: [id number] ROOM/BED: AGE: 47 SEX: F PCP PHYS: No Primary or Family Ph ysician SERVICE AUTHOR: Eli Etienne APRN TRIMMER MACHINE OPERATOR * ALL edits or amendments must be made on the AWID/computer document * Provider in Triage - Adult Provider in Triage Initial Greet Date/Time 11/03/22 0840 Progress 47 year-old female presents to the ER for complaints of right flank pain rating to the right lower quadrant abdominal region x9 days. Pain initially began as right flank pain post gettin g off of the couch so she thought it was possibly a muscle strain. States then it began to increase with movement and bending sitting. The pain radiated to her right hip into her right butt cheek. Now she is hurting to her right lower quadrant region. D enies nausea vomiting fever MSE Not Complete The medical screening exam i s not complete. Further evaluation and/or treatment is required. The patient will be re-directed to the emergency department. [facility]-Provider in Triage Stated Complaint R HIP PAIN X 9 DAYS Allergies Coded Allergies: No Known Allergies (07/09/17) Home Medications Reported Medications No Known Home Medications Electronically Signed by Eli Etienne APRNNP jose aguilar 11/03/22 at 0946 RPT #:[id number] END OF REPORT"
[2023-02-07] MEDS ORDERED: ASPIRIN 81 MG CHEWABLE TABLET ONE (04:54)
[2023-02-07] MEDS ORDERED: NA CHLORIDE 0.9% 1,000 ML ONE (05:03)
[2023-02-07 05:04] LABS: Absolute Lymphocytes (CBC) 1.8 K/uL (0.7-4.9); Hematocrit 45.9 % (36.0-45.0); Lymphocytes % 23.7 % (15.3-44.8); MCV 93.1 fL (80-100); MPV 7.6 fL (7.6-11.3); RBC Red Blood Cell Count 4.94 M/uL (3.86-4.86)
[2023-02-07 05:22] LABS: Magnesium 2.3 mg/dL (1.6-2.4); Potassium 3.5 mEq/L (3.5-5.1); Troponin High Sensitivity 17.8 pg/mL (<58.9)
--- NOTE | 2023-02-07 07:36 | RAD REPORT ---
EXAM DESCRIPTION: CT - Chest For Pe Angio - 02/07/2023 7:17 am CLINICAL HISTORY: CHEST PAIN COMPARISON: No comparisons TECHNIQUE: Thin axial CT images of the chest were obtained following administration of 100 mL Isovue 370 IV contrast. Multiplanar reconstructions, and maximum intensity projection reconstructions were generated and reviewed. Exam utilizes a protocol for optimal evaluation of pulmonary arterial tree. All CT scans are performed using dose optimization technique as appropriate and may include automated exposure control or mA/KV adjustment according to patient size. FINDINGS: Pulmonary arteries are normal. No emboli or other suspicious finding. No acute or signific ant aorta findings. No mass or infiltrate in the lung parenchyma. No pleural thickening or pleural effusion. No pneumotho rax. No abnormal mediastinal or hilar masses or lymphadenopathy seen. No chest wall mass or abnormal axill iary lymphadenopathy. Dextroconvex scoliosis at the midthoracic spine. IMPRESSION: No evidence of acute central pulmonary emboli. No other acute pulmonary process.
[2023-02-07] MEDS ORDERED: CEFTRIAXONE 1000 MG/VIAL ONE (11:04)
[2023-02-07] MEDS ORDERED: NA CHLORIDE 0.9% 100 ML ONE (11:04)
--- NOTE | 2023-02-07 12:39 | EDPHYS ---
Physician Documentation [facility] Name: Yelena Ford Age: 47 yrs Sex: Female : 1975 Arrival Date: 02/07/2023 Time: 04:24 Bed 19 Private MD: ED Physician Chencho Blanco HPI: 02/07 04:49 This 47 yrs old Female presents to ER via Ambulatory with complaints of Chest Pain, ms3 Vomiting, Headache. 04:49 47-year-old female with past medical history of CVA, hypertension, hypercholesterolemia ms3 presents for chest tightness that began yesterday. Patient endorses nausea, vomiting, diarrhea. Patient states her discomfort is a 2/10 described as tight. Patient denies alleviating or inciting factors. Historical: - Allergies: 04:41 No Known Allergies; rv - PMHx: 04:41 Cerebrovascular accident; Hypertensive disorder; Hypercholesterolemia; rv - PSHx: 04:41 Ligation of fallopian tube; rv - Immunization history:: Adult Immunizations unknown. - Social history:: Smoking status: Patient reports the use of cigarette tobacco products, smokes one pack cigarettes per day. ROS: 04:49 Constitutional: Negative for fever, and chills. Neck: Negative for injury, pain, and ms3 swelling, Respiratory: Negative for shortness of breath, cough, wheezing, and pleuritic chest pain, MS/Extremity: Negative for injury and deformity. 04:49 Cardiovascular: Positive for chest pain. 04:49 Abdomen/GI: Positive for nausea, vomiting, and diarrhea. 04:49 All other systems are negative. Exam: 04:49 Constitutional: This is a well developed, well nourished patient who is awake, alert, ms3 and in no acute distress. Head/Face: Normocephalic, atraumatic. Neck: Trachea midline, no cervical lymphadenopathy. Supple, full range of motion without nuchal rigidity, or vertebral point tenderness. No Meningismus. Chest/axilla: Normal chest wall appearance and motion. Nontender with no deformity. Cardiovascular: Regular rate and rhythm with a normal S1 and S2. No gallops, murmurs, or rubs. Normal PMI, no JVD. No pulse deficits. Respiratory: Lungs have equal breath sounds bilaterally, clear to auscultation and percussion. No rales, rhonchi or wheezes noted. No increased work of breathing, no retractions or nasal flaring. Abdomen/GI: Soft, non-tender, with normal bowel sounds. No distension or tympany. No guarding or rebound. No evidence of tenderness throughout. Skin: Warm, dry with normal turgor. Normal color with no rashes, no lesions, and no evidence of cellulitis. MS/ Extremity: Pulses equal, no cyanosis. Neurovascular intact. Full, normal range of motion. 04:53 ECG was reviewed by the Attending Physician. ms3 Vital Signs: 04:40 BP 185 / 109; Pulse 116; Resp 20; Temp 98.5; Pulse Ox 100% ; rv 04:52 BP 163 / 111; Pulse 101; Resp 22 S; Pulse Ox 100% on R/A; lg3 05:56 BP 150 / 98; Pulse 88; Resp 22 S; Pulse Ox 99% on R/A; lg3 06:45 BP 151 / 101; Pulse 91; Resp 23; Pulse Ox 100% on R/A; eh3 07:30 BP 145 / 89; Pulse 87; Resp 24; Pulse Ox 100% on R/A; eh3 08:15 BP 132 / 92; Pulse 85; Resp 17; Pulse Ox 98% on R/A; eh3 09:00 BP 152 / 95; Pulse 81; Resp 15; Pulse Ox 100% on R/A; eh3 10:00 BP 169 / 101; Pulse 92; Resp 20; Pulse Ox 99% on R/A; eh3 11:00 BP 119 / 89; Pulse 87; Resp 18; Pulse Ox 97% on R/A; eh3 12:00 BP 144 / 92; Pulse 86; Resp 16; Pulse Ox 98% on R/A; eh3 MDM: 04:37 Patient medically screened. ms3 04:49 Differential diagnosis: abnormal EKG, acute myocardial infarction, coronary artery ms3 disease. 05:56 HEART Score: History: Slightly Suspicious (0), ECG: Normal (0), Age: > 45 and < 65 ms3 years (1), Risk Factors: > or = 3 Risk factors for atherosclerotic disease (2), [Hypercholesterolemia] [Hypertension] [Active Smoker] Troponin: < or = 1 x Normal Limit (0), Total Score = 2. 12:38 Data reviewed: vital signs, nurses notes. ED course: CT negative for acute pathology bs3 will discharge home per Dr. Carmichael signed out pending CTA patient feeling well requesting to go home. 02/07 04:37 Order name: Basic Metabolic Panel; Complete Time: 05:36 ms3 02/07 04:37 Order name: CBC with Diff; Complete Time: 05:16 ms3 02/07 04:37 Order name: Magnesium; Complete Time: 05:36 ms3 02/07 04:37 Order name: Troponin HS; Complete Time: 05:36 ms3 02/07 05:54 Order name: D-Dimer; Complete Time: 06:32 ms3 02/07 04:37 Order name: XRAY Chest (1 view) ms3 02/07 06:32 Order name: CT Chest For PE Angio; Complete Time: 12:32 ms3 02/07 04:37 Order name: EKG; Complete Time: 04:37 ms3 02/07 04:37 Order name: Cardiac monitoring; Complete Time: 04:44 ms3 02/07 04:37 Order name: EKG - Nurse/Tech; Complete Time: 04:44 ms3 02/07 04:37 Order name: IV Saline Lock; Complete Time: 04:52 ms3 02/07 04:37 Order name: Labs collected and sent; Complete Time: 04:52 ms3 02/07 04:37 Order name: O2 Per Protocol; Complete Time: 04:44 ms3 02/07 04:37 Order name: O2 Sat Monitoring; Complete Time: 04:44 ms3 EC:53 Rate is 107 beats/min. Rhythm is regular. QRS [place] is Normal. SD interval is normal. ms3 QRS interval is normal. Clinical impression: Sinus tachycardia. Interpreted by me. Reviewed by me. Administered Medications: 04:48 Drug: Aspirin PO Chewable Tablet 324 mg Route: PO; lg3 05:19 Follow up: Response: No adverse reaction lg3 05:19 Drug: NS 0.9% IV 1000 ml Route: IV; Rate: 1000 ml; Site: right antecubital; lg3 06:07 Follow up: Response: No adverse reaction; IV Status: Completed infusion; IV Intake: lg3 1000ml Disposition Summary: 02/07/23 12:38 Discharge Ordered Location: Home bs3 Problem: new bs3 Symptoms: have improved bs3 Condition: Stable bs3 Diagnosis - Chest pain, unspecified bs3 Followup: bs3 - With: Private Physician - When: 1 week - Reason: Re-evaluation by your physician Followup: bs3 - With: Luigi Toro MD - When: 1 week - Reason: Recheck today's complaints Followup: bs3 - With: César Trujillo MD - When: 1 week - Reason: Recheck today's complaints Discharge Instructions: - Discharge Summary Sheet bs3 - Nonspecific Chest Pain, Adult, [id number] bs3 Forms: - Work release form bs3 - Medication Reconciliation Form bs3 - Thank You Letter bs3 - Antibiotic Education bs3 - Prescription Opioid Use bs3 - [email or web address] bs3 Signatures: Dispatcher [employer] EDOlman Griffiths MD MD rn Vicente, Ronaldo, RN RN rv Gibson, Lacie, RN RN lg3 Lusi Carmichael, DO ms3 Chencho Blanco MD MD bs3
--- NOTE | 2023-02-07 12:39 | ER ---
Nurse's Notes [facility] Name: Yelena Ford Age: 47 yrs Sex: Female : 1975 Arrival Date: 02/07/2023 Time: 04:24 Bed 19 Private MD: Diagnosis: Chest pain, unspecified Presentation: 02/07 04:40 Chief complaint: Patient states: CP, VOMITING, DIARRHEA SINCE YESTERDAY. Coronavirus rv screen: Vaccine status: Patient reports being unvaccinated. Ebola Screen: Patient negative for fever greater than or equal to 101.5 degrees Fahrenheit, and additional compatible Ebola Virus Disease symptoms Patient denies exposure to infectious person. Patient denies travel to an Ebola-affected area in the 21 days before illness onset. Initial Sepsis Screen: Does the patient meet any 2 criteria? No. Patient's initial sepsis screen is negative. Does the patient have a suspected source of infection? No. Patient's initial sepsis screen is negative. Risk Assessment: Do you want to hurt yourself or someone else? Patient reports no desire to harm self or others. Onset of symptoms was February 06, 2023. 04:40 Method Of Arrival: Ambulatory rv 04:40 Acuity: HANG 3 rv Triage Assessment: 04:41 General: Appears uncomfortable, Behavior is calm, cooperative. Pain: Complains of pain rv in chest. Neuro: Level of Consciousness is awake, alert, obeys commands, Oriented to person, place, time, situation. Cardiovascular: Capillary refill < 3 seconds Rhythm is sinus tachycardia Chest pain began 1 day ago. Respiratory: Airway is patent Respiratory effort is even, unlabored. GI: No signs and/or symptoms were reported involving the gastrointestinal system. : No signs and/or symptoms were reported regarding the genitourinary system. Derm: Skin is intact. Historical: - Allergies: 04:41 No Known Allergies; rv - PMHx: 04:41 Cerebrovascular accident; Hypertensive disorder; Hypercholesterolemia; rv - PSHx: 04:41 Ligation of fallopian tube; rv - Immunization history:: Adult Immunizations unknown. - Social history:: Smoking status: Patient reports the use of cigarette tobacco products, smokes one pack cigarettes per day. Screenin:[address] [facility] ED Fall Risk Assessment (Adult) History of falling in the last 3 months, rv including since admission No falls in past 3 months (0 pts) Confusion or Disorientation No (0 pts) Intoxicated or Sedated No (0 pts) Impaired Gait No (0 pts) Mobility Assist Device Used No (0 pt) Altered Elimination No (0 pt) Score/Fall Risk Level 0 - 2 = Low Risk Oriented to surroundings, Maintained a safe environment, Educated pt \T\ family on fall prevention, incl call for assistance when getting out of bed, Assessed \T\ reinforced patient's understanding of fall precautions, Provided non-skid footwear, Hourly rounding (assess needs \T\ fall precautionary measures) done, Used ambulatory aids as needed (educated on \T\ assisted with), Used gait belt as appropriate. Abuse screen: Denies threats or abuse. Denies injuries from another. Nutritional screening: No deficits noted. Tuberculosis screening: No symptoms or risk factors identified. Assessment: 04:43 Pain: Pain does not radiate. Pain began 1 day ago. rv 05:56 General: Appears in no apparent distress. comfortable, Behavior is calm, cooperative. lg3 Pain: Complains of pain in chest Quality of pain is described as heavy, pressure. Neuro: No deficits noted. [place] Agitation-Sedation Scale (RASS): 0 - Alert and Calm Level of Consciousness is awake, alert, obeys commands, Oriented to person, place, time, situation. Cardiovascular: Capillary refill < 3 seconds Clubbing of nail beds is absent JVD is absent Patient's skin is warm and dry. Rhythm is sinus tachycardia. Respiratory: No deficits noted. Airway is patent Respiratory effort is even, unlabored, Respiratory pattern is regular, symmetrical, Denies shortness of breath. GI: No deficits noted. Reports nausea, vomiting. : No deficits noted. No signs and/or symptoms were reported regarding the genitourinary system. EENT: No deficits noted. No signs and/or symptoms were reported regarding the EENT system. Derm: No deficits noted. No signs and/or symptoms reported regarding the dermatologic system. Skin is intact, is healthy with good turgor, Skin is dry, Skin is normal, Skin temperature is warm. Musculoskeletal: No deficits noted. No signs and/or symptoms reported regarding the musculoskeletal system. Circulation, motion, and sensation intact. Range of motion: intact in all extremities. 07:12 General: Appears in no apparent distress. comfortable, Behavior is calm, cooperative, eh3 appropriate for age. Pain:. Pain: Denies pain. Neuro: [place] Agitation-Sedation Scale (RASS): 0 - Alert and Calm Level of Consciousness is awake, alert, obeys commands, Oriented to person, place, time, situation. Cardiovascular: Capillary refill < 3 seconds Patient's skin is warm and dry. Respiratory: Airway is patent Respiratory effort is even, unlabored, Respiratory pattern is regular, symmetrical. GI: Abdomen is round non-distended. Derm: Skin is pink, warm \T\ dry. Musculoskeletal: Circulation, motion, and sensation intact. 08:00 Reassessment: Patient appears in no apparent distress at this time. Patient and/or eh3 family updated on plan of care and expected duration. Pain level reassessed. Patient is alert, oriented x 3, equal unlabored respirations, skin warm/dry/pink. 09:00 Reassessment: Patient appears in no apparent distress at this time. Patient and/or eh3 family updated on plan of care and expected duration. Pain level reassessed. Patient is alert, oriented x 3, equal unlabored respirations, skin warm/dry/pink. 10:00 Reassessment: Patient appears in no apparent distress at this time. Patient and/or eh3 family updated on plan of care and expected duration. Pain level reassessed. Patient is alert, oriented x 3, equal unlabored respirations, skin warm/dry/pink. 11:00 Reassessment: Patient appears in no apparent distress at this time. Patient and/or eh3 family updated on plan of care and expected duration. Pain level reassessed. Patient is alert, oriented x 3, equal unlabored respirations, skin warm/dry/pink. 12:00 Reassessment: Patient appears in no apparent distress at this time. Patient and/or eh3 family updated on plan of care and expected duration. Pain level reassessed. Patient is alert, oriented x 3, equal unlabored respirations, skin warm/dry/pink. Vital Signs: 04:40 BP 185 / 109; Pulse 116; Resp 20; Temp 98.5; Pulse Ox 100% ; rv 04:52 BP 163 / 111; Pulse 101; Resp 22 S; Pulse Ox 100% on R/A; lg3 05:56 BP 150 / 98; Pulse 88; Resp 22 S; Pulse Ox 99% on R/A; lg3 06:45 BP 151 / 101; Pulse 91; Resp 23; Pulse Ox 100% on R/A; eh3 07:30 BP 145 / 89; Pulse 87; Resp 24; Pulse Ox 100% on R/A; eh3 08:15 BP 132 / 92; Pulse 85; Resp 17; Pulse Ox 98% on R/A; eh3 09:00 BP 152 / 95; Pulse 81; Resp 15; Pulse Ox 100% on R/A; eh3 10:00 BP 169 / 101; Pulse 92; Resp 20; Pulse Ox 99% on R/A; eh3 11:00 BP 119 / 89; Pulse 87; Resp 18; Pulse Ox 97% on R/A; eh3 12:00 BP 144 / 92; Pulse 86; Resp 16; Pulse Ox 98% on R/A; eh3 ED Course: 04:27 Patient arrived in ED. ja2 04:28 Luis Carmichael DO is Attending Physician. ms3 04:40 Francesco Jones RN is Primary Nurse. rv 04:41 Triage completed. rv 04:42 Arm band placed on. rv 04:42 No provider procedures requiring assistance completed. Patient maintains SpO2 rv saturation greater than 95% on room air. 04:43 Patient has correct armband on for positive identification. Placed in gown. Bed in low rv position. Call light in reach. Side rails up X 1. Client placed on continuous cardiac and pulse oximetry monitoring. NIBP monitoring applied. laboratory monitor on. 04:52 Inserted saline lock: 20 gauge in right antecubital area, using aseptic technique. lg3 Blood collected. 04:52 XRAY Chest (1 view) Sent. lg3 05:12 XRAY Chest (1 view) In Process Unspecified. EDMS 07:00 Report received from PREETHI Toro. eh3 07:12 Primary Nurse role handed off by Francesco Jones, PREETHI eh3 07:12 Leora Heredia, PREETHI is Primary Nurse. eh3 07:18 CT Chest For PE Angio In Process Unspecified. EDMS 12:38 Attending Physician role handed off by Luis Carmichael DO bs3 12:38 Chencho Blanco MD is Attending Physician. bs3 12:48 Luigi Toro MD is Referral Physician. bs3 12:48 César Trujillo MD is Referral Physician. bs3 12:59 IV discontinued, intact, bleeding controlled, No redness/swelling at site. Pressure eh3 dressing applied. Administered Medications: 04:48 Drug: Aspirin PO Chewable Tablet 324 mg Route: PO; lg3 05:19 Follow up: Response: No adverse reaction lg3 05:19 Drug: NS 0.9% IV 1000 ml Route: IV; Rate: 1000 ml; Site: right antecubital; lg3 06:07 Follow up: Response: No adverse reaction; IV Status: Completed infusion; IV Intake: lg3 1000ml Medication: 04:43 VIS not applicable for this client. rv Intake: 06:07 IV: 1000ml; Total: 1000ml. lg3 Outcome: 12:38 Discharge ordered by . bs3 12:59 Discharged to home ambulatory. 3 12:59 Condition: stable 12:59 Discharge instructions given to patient, Instructed on discharge instructions, follow up and referral plans. Demonstrated understanding of instructions, follow-up care. 13:00 Patient left the ED. 3 Signatures: Dispatcher [employer] EDMS Francesco Jones, RN RN Muna Swann, RN RN lg3 Luis Carmichael DO DO ms3 Latisha Back Erin, RN RN eh3 Chencho Blanco MD MD bs3
[2023-02-07 13:48] VITALS: TEMP 98.5
[2023-02-07 13:57] VITALS: BP 119/89; O2SAT 97
--- NOTE | 2023-02-08 11:46 | RAD REPORT ---
EXAM DESCRIPTION: RAD - Chest Single View - 02/07/2023 5:10 am CLINICAL HISTORY: CHEST PAIN TECHNIQUE: AP chest COMPARISON: None available for comparison FINDINGS: CHEST: Heart: The cardiomediastinal silhouette is within normal limits. Lungs: No focal consolidation. Mediastinum: Unremarkable Pleura: No appreciable effusion. No pneumothorax. Bones: Thoracic dextroscoliosis. IMPRESSION: 1. No acute cardiopulmonary disease. 2. Thoracic dextroscoliosis. Electronically signed by: Rick Dang MD 02/07/2023 5:26 AM CDT Due to temporary technical issues with the PACS/Fluency reporting system, reports are being signed by the in house radiologists without review as a courtesy to insure prompt reporting. The interpreting radiologist is fully responsible for the content of the report.
--- NOTE | 2023-02-08 20:41 | EKG ---
Test Date: 2023-02-07 Test Time: 04:38:14 Tavern Keeper: RV MEASUREMENT RESULTS: Intervals: Rate: 107 SD: 156 QRSD: 70 QT: 314 QTc: 419 [place]: P: 59 SD: 156 QRS: 41 T: 45 INTERPRETIVE STATEMENTS: Sinus tachycardia Otherwise normal ECG No previous ECG available for comparison Electronically Signed On 02-08-23 20:33:28 CDT by Regan Kidd
== END 2023-02-07 13:00 | disposition home or self-care (01) ==
LOC: ER 04:24
DX: R07.89 Other chest pain (principal); R11.2 Nausea with vomiting, unspecified; F17.210 Nicotine dependence, cigarettes, uncomplicated; I10 Essential (primary) hypertension; Z86.73 Personal history of transient ischemic attack (TIA), and cerebral infarction without residual deficits
CPT/HCPCS: 36415; 71045; 71275; 80048; 83735; 84484; 85025; 85379; 93005; J0696; J7030; Q9967